=== PATIENT | female | born 1960 | race Caucasian/White ===

== ENCOUNTER → 2017-01-15 | Outpatient (CLI) | payer BC ==
[2015-07-20 03:08] VITALS: BP 140/66
[~2017-01-15] MED LIST: ASPI-630 PO; ATOR40TA59 PO; LEVO40CA PO; METO25TA9 PO; PRAS10TA9 PO
--- NOTE | 2017-01-15 08:31 | RAD ---
Indication: Right ankle pain. Time of exam 0807 hours. The alignment is normal. The ankle mortise is well maintained. The talar dome is smooth. No fracture or dislocation is seen. There is a large plantar calcaneal spur. Impression: No acute bony abnormality is detected.
== END | disposition home or self-care (01) ==
LOC: DXRADRC 07:59
PROVIDERS: ATTEND Physician Assistant Medical
DX: M25.571 Pain in right ankle and joints of right foot (principal)
CPT/HCPCS: 73610

== ENCOUNTER 2017-06-24 19:11 | Inpatient (IN) | payer BC ==
[~2017-06-24] VITALS: Ht 165.1 cm; Wt 111.6 kg
[~2017-06-24 19:11] MED LIST changes: +METO-239 PO; -METO25TA9 PO
[2017-06-24] MEDS ORDERED: ASPIRIN 81 MG TAB.CHEW ONE (19:16)
[2017-06-24] MEDS ORDERED: NITROGLYCERIN SUBLINGUAL 0.4 MG BOTTLE OF 25. SL ONE (19:17)
[2017-06-24] MEDS ORDERED: NITROGLYCERIN SUBLINGUAL 0.4 MG BOTTLE OF 25. SL PRN ×2 (19:45→21:45)
[2017-06-24] MEDS ORDERED: MORPHINE SULFATE 2 MG/ML DISP.SYRIN. ONE ×2 (19:53→20:34)
[2017-06-24] MEDS ORDERED: ONDANSETRON PF 4 MG/2 ML VIAL. ONE (19:54)
[2017-06-24] MEDS: MORPHINE SULFATE 2 MG/ML DISP.SYRIN. IV PRN ×2 (19:54→20:35)
[2017-06-24 20:00] LABS: BASO % 1 % (0-3); EOS # 0.1 x10^3/uL (0.0-0.7); EOS % 2 % (0-3); HEMOGLOBIN 14.6 g/dL (12.0-15.5); LYMPH # 1.7 x10^3/uL (1.0-4.8); LYMPH % 23 % (24-48); MEAN CORPUSCULAR HEMOGLOBIN 31 pg (25-35); MEAN CORPUSCULAR HGB CONC 34 g/dL (31-37); MEAN CORPUSCULAR VOLUME 91 fL (79-100); MONO # 0.6 x10^3/uL (0.0-1.1); MONO % 8 % (0-9); NEUT % 67 % (31-73); PLATELET COUNT 240 x10^3/uL (140-400); RED BLOOD COUNT 4.75 x10^6/uL (3.50-5.40); RED CELL DISTRIBUTION WIDTH 14.2 % (11.5-14.5); WHITE BLOOD COUNT 7.4 x10^3/uL (4.0-11.0)
[2017-06-24 20:19] LABS: ALBUMIN 3.8 g/dL (3.4-5.0); ALBUMIN/GLOBULIN RATIO 1.1 (1.0-1.7); CALCIUM 8.9 mg/dL (8.5-10.1); GFR 57.4; MAGNESIUM 2.2 mg/dL (1.8-2.4); POTASSIUM 4.5 mmol/L (3.5-5.1); TOTAL BILIRUBIN 0.3 mg/dL (0.2-1.0); TOTAL PROTEIN 7.3 g/dL (6.4-8.2)
--- NOTE | 2017-06-24 20:19 | EKG ---
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
--- NOTE | 2017-06-24 20:27 | PHYS DOC ---
General Chief Complaint: CHEST PAIN Stated Complaint: CHEST PAIN Time Seen by MD: 19:40 Source: patient Exam Limitations: no limitations Problems: History of Present Illness Initial Comments 1 patient is a 56-year-old female who comes to the emergency department complaining of chest pain. Patient states that this morning after [employer] she was feeling dizzy, at 3:15 PM while sitting on the sofa watching football she developed anterior chest pain described as a tightness with nausea and dizziness and mild shortness of breath , no diaphoresis or arm symptoms she did have some mild neck discomfort. She called personal lines advisor cardiology and they recommended she come for evaluation. On arrival her pain is described as a tightness 7 out of 10 it does improve to 5 out of 10 with nitroglycerin sublingually 1 however her systolic blood pressure did drop into the 90s so no further nitroglycerin has been given and some IV fluids have been started. Patient has history of coronary artery disease she has been stented in the past she follows with Dr. Molina. She cannot tell if today's symptoms are consistent with her prior cardiac symptoms. Timing/Duration: 4-6 hours Severity: moderate Modifying Factors: improves with other Associated Symptoms: chest pain, shortness of breath, other Allergies: Coded Allergies: Sulfa (Sulfonamide Antibiotics) (Verified Allergy, Unknown, 07/19/15) codeine (Verified Allergy, Unknown, 07/19/15) Past Medical History Medical History: other (CAD, cancer) Surgical History: other (stent, hysterectomy) Social History Smoker: non-smoker Alcohol: none Drugs: none Review of Systems Constitutional: denies chills, denies diaphoresis, denies fever, malaise Respiratory: denies cough, shortness of breath, denies wheezing Cardiovascular: see HPI, chest pain, denies palpitations, denies syncope Gastrointestinal: denies abdominal pain, denies diarrhea, nausea, denies vomiting Genitourinary: denies dysuria, denies frequency, denies hematuria Musculoskeletal: denies back pain, denies joint swelling, denies neck pain Psychiatric/Neurological: denies headache, denies numbness, denies paresthesia Hematologic/Lymphatic: denies blood clots, denies easy bleeding, denies easy bruising Physical Exam General Appearance: WD/WN, no apparent distress, obese Eyes: bilateral eye normal inspection, bilateral eye PERRL, bilateral eye EOMI Ear, Nose, Throat: hearing grossly normal, normal ENT inspection Neck: non-tender, full range of motion, supple Respiratory: chest non-tender, normal breath sounds, no respiratory distress Cardiovascular: normal peripheral pulses, regular rate, rhythm Gastrointestinal: normal bowel sounds, non tender, soft Back: no CVA tenderness, no vertebral tenderness Extremities: normal range of motion, non-tender, swelling (2+ pitting LE edema) , other 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 Interpreted by Dr. Limon. This study was compared to a study July 19, 2015 no new acute changes. Chest AP: No acute cardiopulmonary process interpreted by Dr. Limon. Labs unremarkable 2144: I discussed the patient with Dr. Kenney he is in agreement that the patient needs to be admitted to follow serial cardiac enzymes and be evaluated by cardiology tomorrow. He requests observation telemetry admission. Departure Disposition: ADMITTED INPATIENT Diagnosis: chest pain history of coronary artery disease Condition: STABLE Additional Instructions: Observation telemetry admission Dr. Kenney is accepting DOMINIC LIMON DO Jun 24, 2017 20:27
[2017-06-24] MEDS ORDERED: ASPIRIN 81 MG TAB.CHEW PO ONE (20:30)
[2017-06-24] MEDS ORDERED: ONDANSETRON PF 4 MG/2 ML VIAL. IV ONE (20:45)
[2017-06-24 21:13] LABS: BARBITURATES NEG (NEG); BENZODIAZEPINES NEG (NEG); CANNABINOIDS NEG (NEG); COCAINE NEG (NEG); METHADONE NEG (NEG); OPIATES POS (NEG); PHENCYCLIDINE NEG (NEG)
[2017-06-24 21:13] LABS: BACTERIA,URINE MOD /HPF (0-FEW); BILIRUBIN,URINE NEG (NEG); CLARITY,URINE HAZY; COLOR,URINE YELLOW; GLUCOSE,URINE NEG (NEG); NITRITE,URINE NEG (NEG); RBC,URINE 0 /HPF (0-2); SQUAMOUS EPITHELIAL CELL,UR OCC /LPF; UROBILINOGEN,URINE 0.2 mg/dL (0.2 mg/dL)
[2017-06-24 21:38] LABS: AMPHETAMINE/METHAMPHETAMINE NEG (NEG)
[2017-06-24] MEDS ORDERED: ONDANSETRON PF 4 MG/2 ML VIAL. IV PRN (21:45)
[2017-06-24] MEDS ORDERED: ACETAMINOPHEN 325 MG TABLET PO PRN (21:45)
[2017-06-24] MEDS ORDERED: IV NORMAL SALINE 1,000ML 1,000 ML IV ONE (22:00)
[2017-06-24 22:34] VITALS: BP 140/72
[2017-06-24] MEDS ORDERED: MULT1TAB52 PO (22:53)
[2017-06-24] MEDS ORDERED: MELO15TA23 PO (22:53)
[2017-06-24] MEDS ORDERED: Influenza vaccine per PROTOCOL. MC PRN (23:15)
[2017-06-25 03:17] LABS: BASO % 1 % (0-3); EOS # 0.2 x10^3/uL (0.0-0.7); EOS % 2 % (0-3); HEMATOCRIT 40.4 % (36.0-47.0); HEMOGLOBIN 13.4 g/dL (12.0-15.5); LYMPH # 1.8 x10^3/uL (1.0-4.8); LYMPH % 24 % (24-48); MEAN CORPUSCULAR HEMOGLOBIN 30 pg (25-35); MEAN CORPUSCULAR HGB CONC 33 g/dL (31-37); MEAN CORPUSCULAR VOLUME 91 fL (79-100); MONO # 0.5 x10^3/uL (0.0-1.1); MONO % 7 % (0-9); NEUT % 66 % (31-73); PLATELET COUNT 218 x10^3/uL (140-400); RED BLOOD COUNT 4.46 x10^6/uL (3.50-5.40); RED CELL DISTRIBUTION WIDTH 14.1 % (11.5-14.5); WHITE BLOOD COUNT 7.5 x10^3/uL (4.0-11.0)
[2017-06-25 03:47] LABS: CALCIUM 8.3 mg/dL (8.5-10.1); CREATININE 0.8 mg/dL (0.6-1.0); GFR 74.2; POTASSIUM 3.8 mmol/L (3.5-5.1)
[2017-06-25 05:28] VITALS: BP 91/70
--- NOTE | 2017-06-25 07:45 | RAD ---
Indication: Chest pain and stent placement. Technique: Upright portable chest radiograph was obtained. Comparison is from August 18, 2016. Findings: The lungs are clear. The cardiopulmonary silhouette is within normal limits. The bony structures are intact. Impression: No active pulmonary disease.
[2017-06-25] MEDS: MULTIVITAMIN with MINERAL TABLET. PO SCH (08:14)
[2017-06-25] MEDS: ASPIRIN 81 MG TAB.CHEW PO SCH (08:14)
[2017-06-25] MEDS: METOPROLOL SUCC 24HR ER 25 MG TAB.ER.24H. PO SCH (08:17)
[2017-06-25] MEDS: MELOXICAM 15 MG TABLET. PO SCH (08:17)
[2017-06-25 08:20] VITALS: BP 107/64
[2017-06-25] MEDS: LEVOMILNACIPRAN HYDROCHLORIDE 40 MG PO SCH (09:00)
[2017-06-25] MEDS ORDERED: FLU VACC QS2017-18 (36MOS+)/PF 0.5 ML SYRINGE. VAX IM ONE (09:00)
--- NOTE | 2017-06-25 09:04 | PDOC2 ---
CONSULT Date of Admission DATE: 06/25/17 TIME: 08:56 Reason for Consult: cp Problem List Problems Medical Problems: (1) Chest pain Status: Acute History of Present Illness Ms Bailey is a 56 year old female with history of coronary artery disease s/p PCI/ Stent to LAD in 2014, hypertension and hyperlipidemia. She presents with chest pain that started at rest yesterday after pentecostalism around 3:30pm. She reports she lay down but had no relief so called office and was instructed to come for evaluation. She reports improvement in her pain in the ED after nitro and morphine but no resolution. She reports continued mild discomfort this am. She does say yesterday her pain was minimally increased with walking around. She reports some pain off and on lately with exertion and stress. She describes this as pressure that she believes is related to gas. She denies any associated symptoms. She denies dyspnea, congestive symptoms, palpitations. She does report some lightheadedness yesterday at the onset of her discomfort. Past Medical History Cardiac cath 08-04-15 CORONARY ANGIOGRAPHY: LM: is a large short caliber vessel with a normal angiographic appearance. LAD: is a large caliber vessel with a proximal 95% stenosis. The mid vessel has a 40% stenosis. The LAD gives rise to two small caliber diagonal vessels with normal angiographic appearance. LCx: is a large caliber co-dominant vessel with normal angiographic appearance. OM1, OM2 and LP1 are moderate caliber vessels with normal angiographic appearance. RCA: is a moderate caliber co-dominant vessel with normal angiographic appearance. Conclusion 1. Mildly elevated left ventricular filling pressures. 2. One vessel CAD involving the proximal LAD. 3. Successful PCI with implantation of a Resolute 3.5/22 RUY, post-dilated proximally to a 4.5 mm size with aid of IVUS. Echo 08/04/15 <Conclusion> Normal LV systolic function with mild LAD territory hypokinesis. No significant valvular abnormalities. Cardiovascular: HTN, hyperipidemia Renal/: Other (renal cancer) Past Surgical History: Cholecystectomy, Hysterectomy, Other (partial nephrectomy) Family History CAD Social History non smoker, no significant ETOH, no illicit drugs Current Medications Current Medications Aspirin (Children'S Aspirin) 81 mg STK-MED ONCE .ROUTE ; Start 06/24/17 at 19: 16; Stop 06/24/17 at 19:17; Status DC Nitroglycerin (Nitrostat) 0.4 mg STK-MED ONCE SL ; Start 06/24/17 at 19:17; Stop 06/24/17 at 19:18; Status DC Aspirin (Children'S Aspirin) 324 mg 1X ONCE PO Last administered on 19:59; Start 06/24/17 at 20:30; Stop 06/24/17 at 20:31; Status DC Nitroglycerin (Nitrostat) 0.4 mg PRN Q5MIN PRN SL CP RATING > 1/10 Last administered on 06/24/17 19:43; Start 06/24/17 at 19:45; Stop 06/24/17 at 21 :52; Status DC Morphine Sulfate (Morphine 2mg Syringe) 2 mg STK-MED ONCE .ROUTE ; Start at 19:53; Stop 06/24/17 at 19:54; Status DC Ondansetron HCl (Zofran) 4 mg STK-MED ONCE .ROUTE ; Start 06/24/17 at 19:54; Stop 06/24/17 at 19:55; Status DC Morphine Sulfate (Morphine 2mg Syringe) 2 mg STK-MED ONCE .ROUTE ; Start at 20:34; Stop 06/24/17 at 20:35; Status DC Morphine Sulfate (Morphine 2mg Syringe) 2 mg PRN Q15MIN PRN IV CHEST PAIN Last administered on 06/24/17 20:35; Start 06/24/17 at 20:45 Ondansetron HCl (Zofran) 4 mg 1X ONCE IV Last administered on 06/24/17 19:55 ; Start 06/24/17 at 20:45; Stop 06/24/17 at 20:46; Status DC Ondansetron HCl (Zofran) 4 mg PRN Q4HRS PRN IV NAUSEA/VOMITING; Start at 21:45; Stop 06/25/17 at 21:44 Acetaminophen (Tylenol) 650 mg PRN Q4HRS PRN PO FEVER; Start 06/24/17 at 21:45 ; Stop 06/25/17 at 21:44 Nitroglycerin (Nitrostat) 0.4 mg PRN Q5MIN PRN SL CHEST PAIN; Start 06/24/17 at 21:45; Stop 06/25/17 at 21:44 Sodium Chloride 1,000 ml @ 1,000 mls/hr 1X ONCE IV Last administered on 06/24 19:54; Start 06/24/17 at 22:00; Stop 06/24/17 at 22:59; Status DC Info (FLU VACCINE per PROTOCOL) 1 ea PRN 1X PRN MC PER PROTOCOL; Start at 23:15; Status UNV Aspirin (Children'S Aspirin) 81 mg DAILY PO Last administered on 06/25/17 08: 14; Start 06/25/17 at 09:00 Meloxicam (Mobic) 15 mg DAILY PO Last administered on 06/25/17 08:17; Start 06/25/17 at 09:00 Metoprolol Succinate (Toprol Xl) 25 mg DAILY PO Last administered on 08:17; Start 06/25/17 at 09:00 Atorvastatin Calcium (Lipitor) 40 mg QHS PO ; Start 06/25/17 at 21:00 Non-Formulary Medication 40 mg DAILY PO ; Start 06/25/17 at 09:00; Status UNV Multivitamins/ Calcium (Thera-M Plus) 1 tab DAILY PO Last administered on 06/25 08:14; Start 06/25/17 at 09:00 Influenza Virus Vaccine Quadrival (Fluarix Quad [id number] Syringe) 0.5 ml ONCE ONCE VAX IM ; Start 06/25/17 at 09:00; Stop 06/25/17 at 09:01 Active Scripts Active Reported Multivitamins (Multivitamin) 1 Each Tablet 1 Tab PO DAILY Meloxicam 15 Mg Tablet 1 Tab PO DAILY Fetzima (Levomilnacipran Hydrochloride) 40 Mg Cap.sa.24h 40 Mg PO DAILY Metoprolol Succinate ( Xl ) (Metoprolol Succinate) 25 Mg Tab.er.24h 1 Tab PO DAILY Atorvastatin Calcium 40 Mg Tablet 1 Tab PO HS Aspirin 81 Mg Tab.chew 81 Mg PO DAILY Allergies: Coded Allergies: Sulfa (Sulfonamide Antibiotics) (Verified Allergy, Unknown, 07/19/15) codeine (Verified Allergy, Unknown, 07/19/15) Review of System as per HPI General: Alert, Oriented X3, Cooperative, No acute distress HEENT: Atraumatic, EOMI, Mucous membr. moist/pink Heart: Regular rate, Normal S1, Normal S2, Other (no gallops, clicks or rubs) Abdomen: Normal bowel sounds, Soft, No tenderness Extremities: No cyanosis, No edema, Normal pulses Neuro: Normal speech, Strength at 5/5 X4 ext Psych/Mental Status: Mental status NL, Mood NL VITALS Vital Signs Date Time Temp Pulse Resp B/P (MAP) Pulse Ox O2 Delivery O2 Flow Rate FiO2 06/25/17 08:20 70 107/64 (78) 06/25/17 05:28 97.1 16 100 Room Air 06/24/17 21:31 2.0 Labs Laboratory Tests Test 06/24/17 19:40 06/24/17 20:52 06/25/17 03:00 White Blood Count 7.4 x10^3/uL (4.0-11.0) 7.5 x10^3/uL (4.0-11.0) Red Blood Count 4.75 x10^6/uL (3.50-5.40) 4.46 x10^6/uL (3.50-5.40) Hemoglobin 14.6 g/dL (12.0-15.5) 13.4 g/dL (12.0-15.5) Hematocrit 43.0 % (36.0-47.0) 40.4 % (36.0-47.0) Mean Corpuscular Volume 91 fL (79-100) 91 fL (79-100) Mean Corpuscular Hemoglobin 31 pg (25-35) 30 pg (25-35) Mean Corpuscular Hemoglobin Concent 34 g/dL (31-37) 33 g/dL (31-37) Red Cell Distribution Width 14.2 % (11.5-14.5) 14.1 % (11.5-14.5) Platelet Count 240 x10^3/uL (140-400) 218 x10^3/uL (140-400) Neutrophils (%) (Auto) 67 % (31-73) 66 % (31-73) Lymphocytes (%) (Auto) 23 % (24-48) 24 % (24-48) Monocytes (%) (Auto) 8 % (0-9) 7 % (0-9) Eosinophils (%) (Auto) 2 % (0-3) 2 % (0-3) Basophils (%) (Auto) 1 % (0-3) 1 % (0-3) Neutrophils # (Auto) 5.0 x10^3uL (1.8-7.7) 5.0 x10^3uL (1.8-7.7) Lymphocytes # (Auto) 1.7 x10^3/uL (1.0-4.8) 1.8 x10^3/uL (1.0-4.8) Monocytes # (Auto) 0.6 x10^3/uL (0.0-1.1) 0.5 x10^3/uL (0.0-1.1) Eosinophils # (Auto) 0.1 x10^3/uL (0.0-0.7) 0.2 x10^3/uL (0.0-0.7) Basophils # (Auto) 0.0 x10^3/uL (0.0-0.2) 0.0 x10^3/uL (0.0-0.2) Prothrombin Time 10.1 SEC (9.4-11.4) Prothromb Time International Ratio 1.0 (0.9-1.1) Activated Partial Thromboplast Time 25 SEC (23-33) D-Dimer (Bhavya) 0.19 mg/L (0.00-0.50) Sodium Level 143 mmol/L (136-145) 140 mmol/L (136-145) Potassium Level 4.5 mmol/L (3.5-5.1) 3.8 mmol/L (3.5-5.1) Chloride Level 106 mmol/L (98-107) 107 mmol/L (98-107) Carbon Dioxide Level 33 mmol/L (21-32) 27 mmol/L (21-32) Anion Gap 4 (6-14) 6 (6-14) Blood Urea Nitrogen 16 mg/dL (7-20) 18 mg/dL (7-20) Creatinine 1.0 mg/dL (0.6-1.0) 0.8 mg/dL (0.6-1.0) Estimated GFR (Cockcroft-Gault) 57.4 74.2 BUN/Creatinine Ratio 16 (6-20) Glucose Level 93 mg/dL (70-99) 121 mg/dL (70-99) Calcium Level 8.9 mg/dL (8.5-10.1) 8.3 mg/dL (8.5-10.1) Magnesium Level 2.2 mg/dL (1.8-2.4) Total Bilirubin 0.3 mg/dL (0.2-1.0) Aspartate Amino Transf (AST/SGOT) 25 U/L (15-37) Alanine Aminotransferase (ALT/SGPT) 49 U/L (14-59) Alkaline Phosphatase 98 U/L (46-116) Creatine Kinase 80 U/L (26-192) Troponin I Quantitative < 0.017 ng/mL (0-0.055) < 0.017 ng/mL (0-0.055) TG-Fpq-T-Type Natriuretic Peptide 28 pg/mL (0-124) Total Protein 7.3 g/dL (6.4-8.2) Albumin 3.8 g/dL (3.4-5.0) Albumin/Globulin Ratio 1.1 (1.0-1.7) Lipase 196 U/L (73-393) Urine Opiates Screen Pos (NEG) Urine Methadone Screen Neg (NEG) Urine Barbiturates Neg (NEG) Urine Phencyclidine Screen Neg (NEG) Urine Amphetamine/Methamphetamine Neg (NEG) Urine Benzodiazepines Screen Neg (NEG) Urine Cocaine Screen Neg (NEG) Urine Cannabinoids Screen Neg (NEG) Urine Ethyl Alcohol Neg (NEG) Urine Collection Type Unknown Urine Color Yellow Urine Clarity Hazy Urine pH 6.0 Urine Specific [place] 1.025 Urine Protein Neg (NEG-TRACE) Urine Glucose (UA) Neg mg/dL (NEG) Urine Ketones (Stick) Neg mg/dL (NEG) Urine Blood Neg (NEG) Urine Nitrite Neg (NEG) Urine Bilirubin Neg (NEG) Urine Urobilinogen Dipstick 0.2 mg/dL (0.2 mg/dL) Urine Leukocyte Esterase Neg (NEG) Urine RBC 0 /HPF (0-2) Urine WBC 1-4 /HPF (0-4) Urine Squamous Epithelial Cells Occ /LPF Urine Bacteria Mod /HPF (0-FEW) Images EKG - sinus rhythm with non specific t abn CXR - Impression: No active pulmonary disease. Assessment/Plan 1. chest pain - negative CE x 2 sets, no acute abn on EKG. 2. CAD with prior PCI/Stent to LAD 3. hypertension 4. hyperlipidemia Current chest pain unlikely cardiac as enzymes remain negative, however with history of exertional chest pain off and on would recommend repeat echo and MPI. She has consumed caffeine and breakfast this am so will order testing for first thing in the morning tomorrow. Continue medical therapy with aspirin, antianginals and check lipid status. Problems: LISBETH ARMSTRONG APRN Jun 25, 2017 09:04
--- NOTE | 2017-06-25 13:51 | HP ---
ADMIT DATE: 06/25/2017 REASON FOR ADMISSION: Chest pain. HISTORY OF PRESENT ILLNESS: This is a 56-year-old female who has a previous history of coronary artery disease with a stent placement to her LAD in 2014. She stated yesterday around 3:30, she was not doing anything strenuous and developed what she described as central chest pain. The pain has been ongoing with some minimal relief from nitroglycerin and morphine. She felt a little flushed and recently had some drainage from the right ear; otherwise, she has been in her usual state of health. ALLERGIES: SULFA and CODEINE. MEDICATIONS: Reviewed and corrected and are available on the MAR. PAST MEDICAL HISTORY: Depression, controlled very well with Fetzima, coronary artery disease with stent placement in 2014, joint pain in her thumbs and a recent UTI 3 weeks ago. IMMUNIZATIONS: She has not yet received a flu shot. 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 She also does not drink. REVIEW OF SYSTEMS: Positive for one bout of diarrhea, some right ear drainage a couple of days ago; joint pains, which is ongoing. She has had a history of kidney cancer on the right. PAST SURGICAL HISTORY: Right partial nephrectomy, hysterectomy, cystocele repair, cholecystectomy and left wrist surgery. OBJECTIVE: VITAL SIGNS: Height 65 inches, weight 246.31 pounds, blood pressure 107/64, pulse is 70, temperature 97.1, and saturation was 100% on room air. GENERAL: A pleasant 56-year-old, in no acute distress. HEENT: Face is flushed. Throat was clear. Her TMs are intact bilaterally, could not appreciate any drainage from the right ear. There was no erythema. Nose was patent. NECK: Supple, without adenopathy. LUNGS: Clear in all ray. CARDIOVASCULAR: Regular rhythm and rate without murmur. ABDOMEN: Soft, nontender. EXTREMITIES: Without edema. NEUROLOGIC: She is alert and oriented. LABORATORY DATA: CBC is unremarkable. Troponins are negative x 3. Lipids are normal. BMP normal. Drug screen was positive for opiates, but she did receive some morphine. Urine was probably clear, there were 1-4 white cells, but negative nitrites, negative leukocyte esterase. ASSESSMENT: 1. Chest pain with cardiac history. Troponins negative. EKG is also negative. 2. Recent urinary tract infection. 3. Depression, stable on admission. 4. History of kidney cancer, present on admission, stable. PLAN: Because of her risk factors, Cardiology is going to go ahead and stress her do the stress test and monitor her chest pain. EWELINA MAC DO DR: ALOK/robert JOB#: [id number] / [id number]
[2017-06-25 14:34] VITALS: BP 126/71
[2017-06-25] MEDS ORDERED: MAG HYDROX/AL HYDROX/SIMETH 30 ML ORAL.SUSP PO PRN (16:45)
[2017-06-25 19:21] VITALS: BP 146/80
[2017-06-25] MEDS ORDERED: ATORVASTATIN CALCIUM 20 MG TABLET PO SCH (21:00)
[2017-06-25 22:41] VITALS: BP 109/65
[2017-06-26 05:19] VITALS: BP 119/84
[2017-06-26 06:26] LABS: BASO % 1 % (0-3); EOS # 0.2 x10^3/uL (0.0-0.7); EOS % 2 % (0-3); HEMATOCRIT 40.9 % (36.0-47.0); HEMOGLOBIN 13.8 g/dL (12.0-15.5); LYMPH # 1.8 x10^3/uL (1.0-4.8); LYMPH % 28 % (24-48); MEAN CORPUSCULAR HEMOGLOBIN 31 pg (25-35); MEAN CORPUSCULAR HGB CONC 34 g/dL (31-37); MEAN CORPUSCULAR VOLUME 90 fL (79-100); MONO # 0.4 x10^3/uL (0.0-1.1); MONO % 7 % (0-9); NEUT # 3.9 x10^3uL (1.8-7.7); NEUT % 63 % (31-73); PLATELET COUNT 209 x10^3/uL (140-400); RED BLOOD COUNT 4.54 x10^6/uL (3.50-5.40); RED CELL DISTRIBUTION WIDTH 14.2 % (11.5-14.5); WHITE BLOOD COUNT 6.3 x10^3/uL (4.0-11.0)
[2017-06-26 06:47] LABS: ALBUMIN 3.3 g/dL (3.4-5.0); CALCIUM 8.3 mg/dL (8.5-10.1); CREATININE 0.9 mg/dL (0.6-1.0); GFR 64.8; POTASSIUM 4.2 mmol/L (3.5-5.1); TOTAL BILIRUBIN 0.3 mg/dL (0.2-1.0); TOTAL PROTEIN 6.5 g/dL (6.4-8.2)
[2017-06-26] MEDS: LEVOMILNACIPRAN HYDROCHLORIDE 40 MG PO SCH (09:00)
[2017-06-26] MEDS ORDERED: REGADENOSON 0.4 MG/5 ML DISP.SYRIN. IV ONE (09:00)
--- NOTE | 2017-06-26 09:34 | PDOC ---
PROGRESS NOTES Diagnosis Problem Problems Medical Problems: (1) Chest pain Status: Acute Assessment Problems Medical Problems: (1) Chest pain Status: Acute 1. chest pain - [place] ruled out. MPI this am. 2. CAD with prior PCI/Stent to LAD - continue medical therapy. 3. hypertension - controlled on current therapy. 4. hyperlipidemia - continue statin Problems: Subjective no chest pain, no dyspnea, lightheadedness or palpitations, "ready for stress test" Objective Vital Signs Date Time Temp Pulse Resp B/P (MAP) Pulse Ox O2 Delivery O2 Flow Rate FiO2 06/26/17 08:30 Room Air 06/26/17 05:19 97.7 68 20 119/84 (96) 99 2.0 Intake and Output 06/27/17 07:00 Intake Total 0 ml Balance 0 ml Intake Oral 0 ml Abdomen: Normal bowel sounds, Soft, No tenderness Heart: Regular rate, Normal S1, Normal S2 Extremities: No cyanosis, No edema, Normal pulses General: Alert, Oriented X3, Cooperative, No acute distress HEENT: Atraumatic, EOMI Lungs: Clear to auscultation, Normal air movement Neuro: Normal speech, Strength at 5/5 X4 ext Psych/Mental Status: Mental status NL, Mood NL Review of Relevant I have reviewed the following items tesfaye (where applicable) has been applied. Labs Laboratory Tests Test 06/24/17 19:40 06/24/17 20:52 06/24/17 23:10 06/25/17 03:00 White Blood Count 7.4 x10^3/uL (4.0-11.0) 7.5 x10^3/uL (4.0-11.0) Red Blood Count 4.75 x10^6/uL (3.50-5.40) 4.46 x10^6/uL (3.50-5.40) Hemoglobin 14.6 g/dL (12.0-15.5) 13.4 g/dL (12.0-15.5) Hematocrit 43.0 % (36.0-47.0) 40.4 % (36.0-47.0) Mean Corpuscular Volume 91 fL (79-100) 91 fL (79-100) Mean Corpuscular Hemoglobin 31 pg (25-35) 30 pg (25-35) Mean Corpuscular Hemoglobin Concent 34 g/dL (31-37) 33 g/dL (31-37) Red Cell Distribution Width 14.2 % (11.5-14.5) 14.1 % (11.5-14.5) Platelet Count 240 x10^3/uL (140-400) 218 x10^3/uL (140-400) Neutrophils (%) (Auto) 67 % (31-73) 66 % (31-73) Lymphocytes (%) (Auto) 23 % (24-48) 24 % (24-48) Monocytes (%) (Auto) 8 % (0-9) 7 % (0-9) Eosinophils (%) (Auto) 2 % (0-3) 2 % (0-3) Basophils (%) (Auto) 1 % (0-3) 1 % (0-3) Neutrophils # (Auto) 5.0 x10^3uL (1.8-7.7) 5.0 x10^3uL (1.8-7.7) Lymphocytes # (Auto) 1.7 x10^3/uL (1.0-4.8) 1.8 x10^3/uL (1.0-4.8) Monocytes # (Auto) 0.6 x10^3/uL (0.0-1.1) 0.5 x10^3/uL (0.0-1.1) Eosinophils # (Auto) 0.1 x10^3/uL (0.0-0.7) 0.2 x10^3/uL (0.0-0.7) Basophils # (Auto) 0.0 x10^3/uL (0.0-0.2) 0.0 x10^3/uL (0.0-0.2) Prothrombin Time 10.1 SEC (9.4-11.4) Prothromb Time International Ratio 1.0 (0.9-1.1) Activated Partial Thromboplast Time 25 SEC (23-33) D-Dimer (Bhavya) 0.19 mg/L (0.00-0.50) Sodium Level 143 mmol/L (136-145) 140 mmol/L (136-145) Potassium Level 4.5 mmol/L (3.5-5.1) 3.8 mmol/L (3.5-5.1) Chloride Level 106 mmol/L (98-107) 107 mmol/L (98-107) Carbon Dioxide Level 33 mmol/L (21-32) 27 mmol/L (21-32) Anion Gap 4 (6-14) 6 (6-14) Blood Urea Nitrogen 16 mg/dL (7-20) 18 mg/dL (7-20) Creatinine 1.0 mg/dL (0.6-1.0) 0.8 mg/dL (0.6-1.0) Estimated GFR (Cockcroft-Gault) 57.4 74.2 BUN/Creatinine Ratio 16 (6-20) Glucose Level 93 mg/dL (70-99) 121 mg/dL (70-99) Calcium Level 8.9 mg/dL (8.5-10.1) 8.3 mg/dL (8.5-10.1) Magnesium Level 2.2 mg/dL (1.8-2.4) Total Bilirubin 0.3 mg/dL (0.2-1.0) Aspartate Amino Transf (AST/SGOT) 25 U/L (15-37) Alanine Aminotransferase (ALT/SGPT) 49 U/L (14-59) Alkaline Phosphatase 98 U/L (46-116) Creatine Kinase 80 U/L (26-192) Troponin I Quantitative < 0.017 ng/mL (0-0.055) < 0.017 ng/mL (0-0.055) VR-Mko-X-Type Natriuretic Peptide 28 pg/mL (0-124) Total Protein 7.3 g/dL (6.4-8.2) Albumin 3.8 g/dL (3.4-5.0) Albumin/Globulin Ratio 1.1 (1.0-1.7) Lipase 196 U/L (73-393) Urine Opiates Screen Pos (NEG) Urine Methadone Screen Neg (NEG) Urine Barbiturates Neg (NEG) Urine Phencyclidine Screen Neg (NEG) Urine Amphetamine/Methamphetamine Neg (NEG) Urine Benzodiazepines Screen Neg (NEG) Urine Cocaine Screen Neg (NEG) Urine Cannabinoids Screen Neg (NEG) Urine Ethyl Alcohol Neg (NEG) Urine Collection Type Unknown Urine Color Yellow Urine Clarity Hazy Urine pH 6.0 Urine Specific [place] 1.025 Urine Protein Neg (NEG-TRACE) Urine Glucose (UA) Neg mg/dL (NEG) Urine Ketones (Stick) Neg mg/dL (NEG) Urine Blood Neg (NEG) Urine Nitrite Neg (NEG) Urine Bilirubin Neg (NEG) Urine Urobilinogen Dipstick 0.2 mg/dL (0.2 mg/dL) Urine Leukocyte Esterase Neg (NEG) Urine RBC 0 /HPF (0-2) Urine WBC 1-4 /HPF (0-4) Urine Squamous Epithelial Cells Occ /LPF Urine Bacteria Mod /HPF (0-FEW) Nasal Screen MRSA (PCR) Negative (Negative) Test 06/25/17 08:58 06/26/17 06:14 Troponin I Quantitative < 0.017 ng/mL (0-0.055) Triglycerides Level 93 mg/dL (0-150) Cholesterol Level 116 mg/dL (0-200) LDL Cholesterol, Calculated 53 mg/dL (0-100) VLDL Cholesterol, Calculated 18 mg/dL (0-40) Non-HDL Cholesterol Calculated 71 mg/dL (0-129) HDL Cholesterol 45 mg/dL (40-60) Cholesterol/HDL Ratio 2.0 White Blood Count 6.3 x10^3/uL (4.0-11.0) Red Blood Count 4.54 x10^6/uL (3.50-5.40) Hemoglobin 13.8 g/dL (12.0-15.5) Hematocrit 40.9 % (36.0-47.0) Mean Corpuscular Volume 90 fL (79-100) Mean Corpuscular Hemoglobin 31 pg (25-35) Mean Corpuscular Hemoglobin Concent 34 g/dL (31-37) Red Cell Distribution Width 14.2 % (11.5-14.5) Platelet Count 209 x10^3/uL (140-400) Neutrophils (%) (Auto) 63 % (31-73) Lymphocytes (%) (Auto) 28 % (24-48) Monocytes (%) (Auto) 7 % (0-9) Eosinophils (%) (Auto) 2 % (0-3) Basophils (%) (Auto) 1 % (0-3) Neutrophils # (Auto) 3.9 x10^3uL (1.8-7.7) Lymphocytes # (Auto) 1.8 x10^3/uL (1.0-4.8) Monocytes # (Auto) 0.4 x10^3/uL (0.0-1.1) Eosinophils # (Auto) 0.2 x10^3/uL (0.0-0.7) Basophils # (Auto) 0.0 x10^3/uL (0.0-0.2) Sodium Level 142 mmol/L (136-145) Potassium Level 4.2 mmol/L (3.5-5.1) Chloride Level 107 mmol/L (98-107) Carbon Dioxide Level 30 mmol/L (21-32) Anion Gap 5 (6-14) Blood Urea Nitrogen 13 mg/dL (7-20) Creatinine 0.9 mg/dL (0.6-1.0) Estimated GFR (Cockcroft-Gault) 64.8 BUN/Creatinine Ratio 14 (6-20) Glucose Level 108 mg/dL (70-99) Calcium Level 8.3 mg/dL (8.5-10.1) Total Bilirubin 0.3 mg/dL (0.2-1.0) Aspartate Amino Transf (AST/SGOT) 18 U/L (15-37) Alanine Aminotransferase (ALT/SGPT) 41 U/L (14-59) Alkaline Phosphatase 84 U/L (46-116) Total Protein 6.5 g/dL (6.4-8.2) Albumin 3.3 g/dL (3.4-5.0) Albumin/Globulin Ratio 1.0 (1.0-1.7) Microbiology 06/24/17 Urine Culture - Preliminary, Resulted 06/24/17 Urine Culture Result 1 (JAMIL) - Preliminary, Resulted Medications Current Medications Aspirin (Children'S Aspirin) 81 mg STK-MED ONCE .ROUTE ; Start 06/24/17 at 19: 16; Stop 06/24/17 at 19:17; Status DC Nitroglycerin (Nitrostat) 0.4 mg STK-MED ONCE SL ; Start 06/24/17 at 19:17; Stop 06/24/17 at 19:18; Status DC Aspirin (Children'S Aspirin) 324 mg 1X ONCE PO Last administered on 19:59; Start 06/24/17 at 20:30; Stop 06/24/17 at 20:31; Status DC Nitroglycerin (Nitrostat) 0.4 mg PRN Q5MIN PRN SL CP RATING > 1/10 Last administered on 06/24/17 19:43; Start 06/24/17 at 19:45; Stop 06/24/17 at 21 :52; Status DC Morphine Sulfate (Morphine 2mg Syringe) 2 mg STK-MED ONCE .ROUTE ; Start at 19:53; Stop 06/24/17 at 19:54; Status DC Ondansetron HCl (Zofran) 4 mg STK-MED ONCE .ROUTE ; Start 06/24/17 at 19:54; Stop 06/24/17 at 19:55; Status DC Morphine Sulfate (Morphine 2mg Syringe) 2 mg STK-MED ONCE .ROUTE ; Start at 20:34; Stop 06/24/17 at 20:35; Status DC Morphine Sulfate (Morphine 2mg Syringe) 2 mg PRN Q15MIN PRN IV CHEST PAIN Last administered on 06/24/17 20:35; Start 06/24/17 at 20:45 Ondansetron HCl (Zofran) 4 mg 1X ONCE IV Last administered on 06/24/17 19:55 ; Start 06/24/17 at 20:45; Stop 06/24/17 at 20:46; Status DC Ondansetron HCl (Zofran) 4 mg PRN Q4HRS PRN IV NAUSEA/VOMITING; Start at 21:45; Stop 06/25/17 at 21:44; Status DC Acetaminophen (Tylenol) 650 mg PRN Q4HRS PRN PO FEVER Last administered on 20:20; Start 06/24/17 at 21:45; Stop 06/25/17 at 21:44; Status DC Nitroglycerin (Nitrostat) 0.4 mg PRN Q5MIN PRN SL CHEST PAIN; Start 06/24/17 at 21:45; Stop 06/25/17 at 21:44; Status DC Sodium Chloride 1,000 ml @ 1,000 mls/hr 1X ONCE IV Last administered on 06/24 19:54; Start 06/24/17 at 22:00; Stop 06/24/17 at 22:59; Status DC Info (FLU VACCINE per PROTOCOL) 1 ea PRN 1X PRN MC PER PROTOCOL; Start at 23:15; Status UNV Aspirin (Children'S Aspirin) 81 mg DAILY PO Last administered on 06/25/17 08: 14; Start 06/25/17 at 09:00 Meloxicam (Mobic) 15 mg DAILY PO Last administered on 06/25/17 08:17; Start 06/25/17 at 09:00 Metoprolol Succinate (Toprol Xl) 25 mg DAILY PO Last administered on 08:17; Start 06/25/17 at 09:00 Atorvastatin Calcium (Lipitor) 40 mg QHS PO Last administered on 06/25/17 21: 08; Start 06/25/17 at 21:00 Non-Formulary Medication 40 mg DAILY PO ; Start 06/25/17 at 09:00; Status UNV Multivitamins/ Calcium (Thera-M Plus) 1 tab DAILY PO Last administered on 06/25 08:14; Start 06/25/17 at 09:00 Influenza Virus Vaccine Quadrival (Fluarix Quad Syringe) 0.5 ml ONCE ONCE VAX IM ; Start 06/25/17 at 09:00; Stop 06/25/17 at 09:01; Status DC Influenza Virus Vaccine Quadrival (Fluarix Quad [id number] Syringe) 0.5 ml ONCE ONCE VAX IM ; Start 06/26/17 at 12:00; Stop 06/26/17 at 12:01 Al Hydroxide/Mg Hydroxide (Mylanta Plus Xs) 30 ml PRN Q2HR PRN PO DYSPEPSIA; Start 06/25/17 at 16:45 Regadenoson (Lexiscan) 0.4 mg 1X ONCE IV ; Start 06/26/17 at 09:00; Stop at 09:01; Status DC Active Scripts Active Reported Multivitamins (Multivitamin) 1 Each Tablet 1 Tab PO DAILY Meloxicam 15 Mg Tablet 1 Tab PO DAILY Fetzima (Levomilnacipran Hydrochloride) 40 Mg Cap.sa.24h 40 Mg PO DAILY Metoprolol Succinate ( Xl ) (Metoprolol Succinate) 25 Mg Tab.er.24h 1 Tab PO DAILY Atorvastatin Calcium 40 Mg Tablet 1 Tab PO HS Aspirin 81 Mg Tab.chew 81 Mg PO DAILY Vitals/I & O Vital Sign - Last 24 Hours 06/25/17 06/25/17 06/25/17 06/25/17 14:34 19:21 20:00 22:41 Temp 97.7 98.0 Pulse 77 72 70 Resp 21 18 18 B/P (MAP) 126/71 (89) 146/80 (102) 109/65 (80) Pulse Ox 97 100 100 O2 Delivery Room Air Room Air Nasal Cannula O2 Flow Rate 2.0 06/26/17 06/26/17 05:19 08:30 Temp 97.7 Pulse 68 Resp 20 B/P (MAP) 119/84 (96) Pulse Ox 99 O2 Delivery Room Air O2 Flow Rate 2.0 Intake and Output 06/26/17 06/26/17 06/27/17 15:00 23:00 07:00 Intake Total 0 ml Balance 0 ml LISBETH ARMSTRONG APRN Jun 26, 2017 09:34
[2017-06-26] MEDS: MELOXICAM 15 MG TABLET. PO SCH (11:11)
[2017-06-26] MEDS: MULTIVITAMIN with MINERAL TABLET. PO SCH (11:11)
[2017-06-26] MEDS: ASPIRIN 81 MG TAB.CHEW PO SCH (11:12)
[2017-06-26] MEDS: METOPROLOL SUCC 24HR ER 25 MG TAB.ER.24H. PO SCH (11:12)
[2017-06-26 11:21] VITALS: BP 108/69
[2017-06-26] MEDS ORDERED: FLU VACC QS2017-18 (36MOS+)/PF 0.5 ML SYRINGE. VAX IM ONE (12:00)
--- NOTE | 2017-06-26 12:24 | CARD ---
APPROVED REPORT EXAM: Two-dimensional and M-mode echocardiogram with Doppler and color Doppler. Other Information Quality : FairHR: 75bpm INDICATION Chest Pain 2D DIMENSIONS Left Atrium(2D)4.2 (1.6-4.0cm)IVSd1.0 (0.7-1.1cm) Aortic Root(2D)2.6 (2.0-3.7cm)LVDd4.4 (3.9-5.9cm) LVOT Diameter2.1 (1.8-2.4cm)PWd1.0 (0.7-1.1cm) LA Rsnsao02 (18-58mL)LVDs2.9 (2.5-4.0cm) FS (%) 34.6 %SV57.3 ml LVEF(%)63.9 (>50%) Aortic Valve AoV Peak Jairo.101.6cm/sAoV VTI21.2cm AO Peak GR.4.1mmHgLVOT Peak Jairo.115.2cm/s LVOT VTI 25.26cmAO Mean GR.2mmHg SUMMER (VMAX)3.48xr9AGA (VTI)4.12cm2 Mitral Valve MV E Hzqluwrc911.2cm/sMV E Peak Gr.4mmHg MV DECEL [id number] A Gafomeee01.8cm/s MV E Mean Gr.2mmHgE/A Ratio1.4 Pulmonary Valve PV Peak Wejczoiv05.6cm/sPV Peak Grad.3mmHg Tricuspid Valve TR P. Hcvjzrhv581hi/sRAP CPEFTEFU9nhEu TR Peak Gr.40psSxNDSE39vrLt Pulmonary Vein S1 Ebhutenb54.2cm/sD2 Xrvpadbp86.4cm/s LEFT VENTRICLE The left ventricle is normal size. There is normal left ventricular wall thickness. The left ventricu lar systolic function is normal. The ejection fraction is estimated at 60%. There is normal LV segmen israel wall motion. The left ventricular diastolic function and filling is normal for age. No left ventr icle thrombus noted on this study. There is no ventricular septal defect visualized. There is no left ventricular aneurysm. There is no mass noted in the left ventricle. RIGHT VENTRICLE The right ventricle is normal size. There is normal right ventricular wall thickness. The right ventr icular systolic function is normal. ATRIA The left atrium is mildly dilated. The right atrium size is normal. The interatrial septum is intact with no evidence for an atrial septal defect or patent foramen ovale as noted on 2-D or Doppler imagi ng. AORTIC VALVE The aortic valve is normal in structure and function. Doppler and Color Flow revealed no significant aortic regurgitation. There is no significant aortic valvular stenosis. There is no aortic valvular v egetation. MITRAL VALVE The mitral valve is normal in structure and function. There is no evidence of mitral valve prolapse. There is no mitral valve stenosis. Doppler and Color-flow revealed mild mitral regurgitation. TRICUSPID VALVE The tricuspid valve is normal in structure and function. Doppler and Color Flow revealed mild tricusp id regurgitation. There is no tricuspid valve prolapse or vegetation. There is no tricuspid valve casey nosis. PULMONIC VALVE The pulmonary valve is normal in structure and function. Doppler and Color Flow revealed trace pulmon ic valvular regurgitation. There is no pulmonic valvular stenosis. GREAT VESSELS The aortic root is normal in size. The ascending aorta is normal in size. PERICARDIAL EFFUSION There is no pleural effusion. There is no evidence of significant pericardial effusion. Critical Notification Critical Value: No <Conclusion> The left ventricular systolic function is normal. The ejection fraction is estimated at 60%. There is normal LV segmental wall motion. Mild mitral regurgitation. Mild tricuspid regurgitation. There is no evidence of significant pericardial effusion.
--- NOTE | 2017-06-26 13:52 | RAD ---
APPROVED REPORT Test Type: Pharmacological Stress Nurse/Tech: RIO Santacruz Test Indications: Hx of CAD - stent - recent Chest Pain and palpitations Cardiac History: see EHR Medications: see EHR Medical History: see EHR Resting ECG: Sinus Rythym Resting Heart Rate: 68 bpm Resting Blood Pressure: 133/83mmHg Pretest Chest Pain: None Nurse/Tech Notes dyspnea during stress Consent: The procedure was explained to the patient in lay terms. Informed consent was witnessed. Florentin eout was entered into [employer]. History and Stress Test performed by RIO Santacruz Pharm. Details Pharmacologic stress testing was performed using 0.4mg per 5ml of regadenoson given intravenously ove r 7-10 seconds. Stress Symptoms dyspnea during stress POST EXERCISE Reason for Termination: Infusion complete Max HR: 93 bpm Max Blood Pressure: 135/76mmHg Blood Pressure response to exercise: Normal blood pressure response during stress. Heart Rate response to exercise: normal response Chest Pain: No. INTERPRETATION Stress EKG Conclusion: Baseline EKG showed sinus rhythm. No ischemic changes at peak stress. No arr hythmias. Imaging Protocol IMAGE PROTOCOL: Stress Tc-99m/rest Tc-99m 2 days Rest: Stress: Viability: Radiopharm.Tc99m Sestamibi Dose32.3mCi Duration 12min. Img Date 06/26/2017 Inj-Img [id number]. Stress Admin Site: IV - Right AntecubitalAdministrator: RIO Santacruz STRESS DATA End Diast. Vol.85.0mlAv. Heart Rate72.0bpm LVEDV index BSA1.0mlCardiac Output0.1L/min End Syst. Vol.14.0mlCO Index BSA5.1L/min LVESV index BSA0.0mlMyocardial Vlnh933.0g Eject. Rzwltnmv92.0% Stress Rates Pk. Fill Rate3.90EDV/secLVtime Pk. Fill 210.44msec Pk. Empty Rate4.09ESV/secLVtime Pk. Xwxfn089.94msec /3 Pk. Fill1.43EDV/sec Stress Scores Regional WT0.00Summed WT8.00 Regional WM0.00Summed WM0.00 LV Perfusion Stress scintigraphic images did not show any significant perfusion defects. Wall Motion Normal left ventricular systolic function with ejection fraction calculated at 84%. LV Perf. Quant 17 Seg. SSS1.00 Stress Defect Extent (% LAD)0.00Rest Defect Extent (% LAD)Rev. Defect Extent (% LAD)0.00 Stress Defect Extent (% LCX) 8.80Rest Defect Extent (% LCX)Rev. Defect Extent (% LCX)1.30 Stress Defect Extent (% RCA)0.00Rest Defect Extent (% RCA)Rev. Defect Extent (% RCA)0.00 Stress Defect Extent (% JERI)1.50Rest Defect Extent (% JERI)Rev. Defect Extent (% JERI)0.20 Conclusion 1. Regadenoson cardioisotope stress test did not show any evidence of ischemia or infarct. 2. Normal left ventricular systolic function with ejection fraction calculated at 84%. 3. Low risk for cardiac events.
[2017-06-26 15:58] VITALS: BP 130/78
--- NOTE | 2017-06-27 14:04 | PDOC3 ---
Discharge Summary Visit Information Date of Admission: Jun 25, 2017 Date of Discharge: Jun 26, 2017 Final Diagnosis Problems Medical Problems: (1) Chest pain Status: Acute 1. chest pain - [place] ruled out. MPI this am.-negative 2. CAD with prior PCI/Stent to LAD - continue medical therapy. 3. hypertension - controlled on current therapy. 4. hyperlipidemia - continue statin 2. Recent urinary tract infection. 3. Depression, stable on admission. 4. History of kidney cancer, present on admission, stable. Problems: Brief Hospital Course Allergies Allergies Coded Allergies Type Severity Reaction Last Updated Verified Sulfa (Sulfonamide Antibiotics) Allergy Intermediate 06/26/17 Yes codeine Allergy Intermediate 06/26/17 Yes Vital Signs Vital Signs Date Time Temp Pulse Resp B/P (MAP) Pulse Ox O2 Delivery O2 Flow Rate FiO2 06/26/17 15:58 98.1 69 20 130/78 (95) 97 Room Air 06/26/17 05:19 2.0 Lab Results Laboratory Tests Test 06/26/17 06:14 White Blood Count 6.3 x10^3/uL (4.0-11.0) Red Blood Count 4.54 x10^6/uL (3.50-5.40) Hemoglobin 13.8 g/dL (12.0-15.5) Hematocrit 40.9 % (36.0-47.0) Mean Corpuscular Volume 90 fL (79-100) Mean Corpuscular Hemoglobin 31 pg (25-35) Mean Corpuscular Hemoglobin Concent 34 g/dL (31-37) Red Cell Distribution Width 14.2 % (11.5-14.5) Platelet Count 209 x10^3/uL (140-400) Neutrophils (%) (Auto) 63 % (31-73) Lymphocytes (%) (Auto) 28 % (24-48) Monocytes (%) (Auto) 7 % (0-9) Eosinophils (%) (Auto) 2 % (0-3) Basophils (%) (Auto) 1 % (0-3) Neutrophils # (Auto) 3.9 x10^3uL (1.8-7.7) Lymphocytes # (Auto) 1.8 x10^3/uL (1.0-4.8) Monocytes # (Auto) 0.4 x10^3/uL (0.0-1.1) Eosinophils # (Auto) 0.2 x10^3/uL (0.0-0.7) Basophils # (Auto) 0.0 x10^3/uL (0.0-0.2) Sodium Level 142 mmol/L (136-145) Potassium Level 4.2 mmol/L (3.5-5.1) Chloride Level 107 mmol/L (98-107) Carbon Dioxide Level 30 mmol/L (21-32) Anion Gap 5 (6-14) Blood Urea Nitrogen 13 mg/dL (7-20) Creatinine 0.9 mg/dL (0.6-1.0) Estimated GFR (Cockcroft-Gault) 64.8 BUN/Creatinine Ratio 14 (6-20) Glucose Level 108 mg/dL (70-99) Calcium Level 8.3 mg/dL (8.5-10.1) Total Bilirubin 0.3 mg/dL (0.2-1.0) Aspartate Amino Transf (AST/SGOT) 18 U/L (15-37) Alanine Aminotransferase (ALT/SGPT) 41 U/L (14-59) Alkaline Phosphatase 84 U/L (46-116) Total Protein 6.5 g/dL (6.4-8.2) Albumin 3.3 g/dL (3.4-5.0) Albumin/Globulin Ratio 1.0 (1.0-1.7) Brief Hospital Course Ms. Bailey is a 56 old [sex] who presented with [ ] HISTORY OF PRESENT ILLNESS: This is a 56-year-old female who has a previous history of coronary artery disease with a stent placement to her LAD in 2014. She stated yesterday around 3:30, she was not doing anything strenuous and developed what she described as central chest pain. The pain has been ongoing with some minimal relief from nitroglycerin and morphine. She felt a little flushed and recently had some drainage from the right ear; otherwise, she has been in her usual state of health. [place] ruled out. Lexiscan negative. Source of chest pain appears to be non cardiac-unable to determine Discharge Information Condition at Discharge: Improved Disposition/Orders: D/C to Home Dischare Medications Current Medications Aspirin (Children'S Aspirin) 81 mg STK-MED ONCE .ROUTE ; Start 06/24/17 at 19: 16; Stop 06/24/17 at 19:17; Status DC Nitroglycerin (Nitrostat) 0.4 mg STK-MED ONCE SL ; Start 06/24/17 at 19:17; Stop 06/24/17 at 19:18; Status DC Aspirin (Children'S Aspirin) 324 mg 1X ONCE PO Last administered on 19:59; Start 06/24/17 at 20:30; Stop 06/24/17 at 20:31; Status DC Nitroglycerin (Nitrostat) 0.4 mg PRN Q5MIN PRN SL CP RATING > 1/10 Last administered on 06/24/17 19:43; Start 06/24/17 at 19:45; Stop 06/24/17 at 21 :52; Status DC Morphine Sulfate (Morphine 2mg Syringe) 2 mg STK-MED ONCE .ROUTE ; Start at 19:53; Stop 06/24/17 at 19:54; Status DC Ondansetron HCl (Zofran) 4 mg STK-MED ONCE .ROUTE ; Start 06/24/17 at 19:54; Stop 06/24/17 at 19:55; Status DC Morphine Sulfate (Morphine 2mg Syringe) 2 mg STK-MED ONCE .ROUTE ; Start at 20:34; Stop 06/24/17 at 20:35; Status DC Morphine Sulfate (Morphine 2mg Syringe) 2 mg PRN Q15MIN PRN IV CHEST PAIN Last administered on 06/24/17 20:35; Start 06/24/17 at 20:45; Stop 06/26/17 at 16 :40; Status DC Ondansetron HCl (Zofran) 4 mg 1X ONCE IV Last administered on 06/24/17 19:55 ; Start 06/24/17 at 20:45; Stop 06/24/17 at 20:46; Status DC Ondansetron HCl (Zofran) 4 mg PRN Q4HRS PRN IV NAUSEA/VOMITING; Start at 21:45; Stop 06/25/17 at 21:44; Status DC Acetaminophen (Tylenol) 650 mg PRN Q4HRS PRN PO FEVER Last administered on 20:20; Start 06/24/17 at 21:45; Stop 06/25/17 at 21:44; Status DC Nitroglycerin (Nitrostat) 0.4 mg PRN Q5MIN PRN SL CHEST PAIN; Start 06/24/17 at 21:45; Stop 06/25/17 at 21:44; Status DC Sodium Chloride 1,000 ml @ 1,000 mls/hr 1X ONCE IV Last administered on 06/24 19:54; Start 06/24/17 at 22:00; Stop 06/24/17 at 22:59; Status DC Info (FLU VACCINE per PROTOCOL) 1 ea PRN 1X PRN MC PER PROTOCOL; Start at 23:15; Status UNV Aspirin (Children'S Aspirin) 81 mg DAILY PO Last administered on 06/26/17 11: 12; Start 06/25/17 at 09:00; Stop 06/26/17 at 16:40; Status DC Meloxicam (Mobic) 15 mg DAILY PO Last administered on 06/26/17 11:11; Start 06/25/17 at 09:00; Stop 06/26/17 at 16:40; Status DC Metoprolol Succinate (Toprol Xl) 25 mg DAILY PO Last administered on 11:12; Start 06/25/17 at 09:00; Stop 06/26/17 at 16:40; Status DC Atorvastatin Calcium (Lipitor) 40 mg QHS PO Last administered on 06/25/17 21: 08; Start 06/25/17 at 21:00; Stop 06/26/17 at 16:40; Status DC Non-Formulary Medication 40 mg DAILY PO ; Start 06/25/17 at 09:00; Stop at 16:40; Status DC Multivitamins/ Calcium (Thera-M Plus) 1 tab DAILY PO Last administered on 06/26 11:11; Start 06/25/17 at 09:00; Stop 06/26/17 at 16:40; Status DC Influenza Virus Vaccine Quadrival (Fluarix Quad Syringe) 0.5 ml ONCE ONCE VAX IM Last administered on 06/26/17 11:15; Start 06/25/17 at 09:00; Stop 06/25/17 at 09:01; Status DC Influenza Virus Vaccine Quadrival (Fluarix Quad Syringe) 0.5 ml ONCE ONCE VAX IM ; Start 06/26/17 at 12:00; Stop 06/26/17 at 12:01; Status DC Al Hydroxide/Mg Hydroxide (Mylanta Plus Xs) 30 ml PRN Q2HR PRN PO DYSPEPSIA; Start 06/25/17 at 16:45; Stop 06/26/17 at 16:40; Status DC Regadenoson (Lexiscan) 0.4 mg 1X ONCE IV Last administered on 06/26/17t 09:00 ; Start 06/26/17 at 09:00; Stop 06/26/17 at 09:01; Status DC Active Scripts Active Reported Multivitamins (Multivitamin) 1 Each Tablet 1 Tab PO DAILY LAST DOSE GIVEN: DATE: TODAY TIME: AM NEXT DOSE DUE: DATE: TOMORROW TIME: AM Meloxicam 15 Mg Tablet 1 Tab PO DAILY LAST DOSE GIVEN: DATE: TODAY TIME: AM NEXT DOSE DUE: DATE: TOMORROW TIME: AM Fetzima (Levomilnacipran Hydrochloride) 40 Mg Cap.sa.24h 40 Mg PO DAILY LAST DOSE GIVEN: DATE: TODAY TIME: AM NEXT DOSE DUE: DATE: TOMORROW TIME: AM Metoprolol Succinate ( Xl ) (Metoprolol Succinate) 25 Mg Tab.er.24h 1 Tab PO DAILY LAST DOSE GIVEN: DATE: TODAY TIME: AM NEXT DOSE DUE: DATE: TOMORROW TIME: AM Atorvastatin Calcium 40 Mg Tablet 1 Tab PO HS LAST DOSE GIVEN: DATE: YESTERDAY TIME: PM NEXT DOSE DUE: DATE: TODAY TIME: PM Aspirin 81 Mg Tab.chew 81 Mg PO DAILY LAST DOSE GIVEN: DATE: TODAY TIME: AM NEXT DOSE DUE: DATE: TOMORROW TIME: AM Patient Instructions Patient Instuctions See [facility] EWELINA Greenfield DO Jun 27, 2017 14:03
== END 2017-06-26 16:35 | disposition home or self-care (01) | DRG 313 ==
LOC: ER 19:11 → ICU 21:51 → OBSVTOIN 06-25 10:53 → 1 SOUTH 06-25 18:46
PROVIDERS: ADMIT Internal Medicine; ATTEND Internal Medicine
DX: R07.89 Other chest pain (principal); I25.10 Atherosclerotic heart disease of native coronary artery without angina pectoris; E78.5 Hyperlipidemia, unspecified; F17.200 Nicotine dependence, unspecified, uncomplicated; F32.9 Major depressive disorder, single episode, unspecified; I10 Essential (primary) hypertension; Z82.49 Family history of ischemic heart disease and other diseases of the circulatory system; Z85.528 Personal history of other malignant neoplasm of kidney; Z95.5 Presence of coronary angioplasty implant and graft; Z88.5 Allergy status to narcotic agent; Z88.2 Allergy status to sulfonamides; Z90.710 Acquired absence of both cervix and uterus; Z90.5 Acquired absence of kidney; Z90.49 Acquired absence of other specified parts of digestive tract; Z87.440 Personal history of urinary (tract) infections
CPT/HCPCS: 36415; 71010; 78452; 80048; 80053; 80061; 80307; 81001; 82550; 83690; 83735; 83880; 84484; 85025; 85379; 85610; 85730; 87086; 87641; 90686; 93005; 93017; 93306; 96361; 96374; 96375; 96376; A9500; G0378; G0379; J2270; J2405; J2785; 99285-25; G0479; J7030

== ENCOUNTER → 2017-09-18 | Outpatient (CLI) | payer BC ==
[~2017-09-18] MED LIST changes: +MELO15TA23 PO; +MULT1TAB52 PO
--- NOTE | 2017-09-18 16:22 | RAD ---
PROCEDURE: CHEST PA LATERAL CLINICAL INDICATION: COUGH,FEVER COMPARISON: Previous study from 06/24/2017 FINDINGS: No pneumothorax identified. Cardiac and mediastinal contours unremarkable. No pulmonary consolidation or acute airspace disease. No acute osseous abnormalities identified. Calcified granuloma in the right lung apex. IMPRESSION: No pulmonary consolidation or acute airspace disease.
== END | disposition home or self-care (01) ==
LOC: PMG 15:08
PROVIDERS: ATTEND Nurse Practitioner Family
DX: R05 Cough (principal); J98.4 Other disorders of lung; Z87.891 Personal history of nicotine dependence
CPT/HCPCS: 71046

== ENCOUNTER → 2018-11-04 | Outpatient (CLI) | payer BC ==
[~2018-11-04] MED LIST changes: +IOHEXOL 300 MG/ML 75 ML VIAL. IV ONE
[2018-11-04 10:50] LABS: CREATININE 0.9 mg/dL (0.6-1.0); GFR 64.5
--- NOTE | 2018-11-04 14:35 | RAD ---
Examination: CT abdomen with IV contrast HISTORY: History of renal cancer, right flank pain COMPARISON: 08/23/2016 TECHNIQUE: Axial CT images of the abdomen were performed with IV contrast. Coronal and sagittal reformats are performed Exposure: One or more of the following individualized dose reduction techniques were utilized for this examination: 1. Automated exposure control 2. Adjustment of the mA and/or kV according to patient size 3. Use of iterative reconstruction technique FINDINGS: Minimal bibasilar lung atelectasis. No evidence of free air identified in the abdomen. There is diffuse decreased attenuation noted in the liver likely hepatic steatosis. The visualized spleen, adrenals grossly appears unremarkable. Cholecystectomy clips identified. The stomach is mildly distended. Small hiatal hernia is identified. Visualized pancreas grossly appears unremarkable. The small bowel is nondilated. The appendix is normal. Partially visualized colon demonstrates feces and gas within. The bilateral kidneys enhance symmetrically. No obvious mass visualized. Surgical clip identified posterior to the right kidney similar to prior exam The caliber of the aorta grossly appears unremarkable. Mild degenerative changes lumbar spine. IMPRESSION: 1. No obvious enhancing renal mass identified. 2. Hepatic steatosis. Electronically signed by: Giovanni Harris MD (11/04/2018 2:33 PM) [id number]
== END | disposition home or self-care (01) ==
LOC: CT 09:43
PROVIDERS: ATTEND Physician Assistant Medical
DX: K76.0 Fatty (change of) liver, not elsewhere classified (principal); M47.896 Other spondylosis, lumbar region; K44.9 Diaphragmatic hernia without obstruction or gangrene; K31.89 Other diseases of stomach and duodenum; J98.11 Atelectasis; Z85.528 Personal history of other malignant neoplasm of kidney; Z90.49 Acquired absence of other specified parts of digestive tract
CPT/HCPCS: 36415; 74160; 82565; Q9967

== ENCOUNTER → 2021-04-25 | Outpatient (CLI) | payer BC ==
[~2021-04-25] MED LIST changes: -IOHEXOL 300 MG/ML 75 ML VIAL. IV ONE; +MULT-445 PO; -MULT1TAB52 PO
--- NOTE | 2021-04-25 11:17 | RAD ---
EXAM: AP, lateral and sunrise views of the right knee. DATE: 04/25/2021 8:50 AM INDICATION: Reason: KNEE INJURY, PAIN / Spl. Instructions: / History: COMPARISON: No Prior FINDINGS: No acute fracture or dislocation. No joint effusion. Joint spaces are preserved without significant degenerative/proliferative change. Heterogeneous sclerosis within the distal left femoral shaft may r epresent low-grade cartilaginous lesion such as enchondroma or bone infarct. IMPRESSION: 1. No acute fracture or dislocation. 2. Heterogeneous sclerosis within the distal left femoral shaft may represent low-grade cartilaginou s lesion such as enchondroma or bone infarct. Electronically signed by: Dakota De Guzman MD (04/25/2021 11:14 AM) [id number]
== END ==
LOC: RAD 08:42
PROVIDERS: ATTEND Physician Assistant Medical
DX: M25.562 Pain in left knee (principal)
CPT/HCPCS: 73562

== ENCOUNTER → 2021-05-03 | Outpatient (CLI) | payer BC ==
--- NOTE | 2021-05-03 13:37 | RAD ---
EXAM: Right foot, 3 views. HISTORY: Blunt trauma. COMPARISON: None. FINDINGS: 3 views of the right foot are obtained. There is no acute fracture, dislocation or subluxat ion. There is mild degenerative spurring involving the first metatarsal phalangeal joint. There is a small plantar spur. There is slight enthesopathy at the Achilles tendon insertion. IMPRESSION: 1. No acute osseous finding. 2. Mild first metatarsophalangeal joint osteoarthritis. 3. Small plantar spur. Electronically signed by: Erin Laughlin MD (05/03/2021 1:35 PM) [id number]
== END ==
LOC: RAD 13:17
PROVIDERS: ATTEND Physician Assistant Medical
DX: M19.071 Primary osteoarthritis, right ankle and foot (principal); M77.31 Calcaneal spur, right foot; M76.61 Achilles tendinitis, right leg; M79.671 Pain in right foot
CPT/HCPCS: 73630

== ENCOUNTER 2021-08-14 22:20 | Emergency (ER) | payer BC ==
[~2021-08-14] VITALS: Ht 172.7 cm; Wt 102.1 kg
--- NOTE | 2021-08-14 22:34 | PHYS DOC ---
Past History Past Medical History: Cancer, [place] Past Surgical History: Hysterectomy Alcohol Use: Occasionally Drug Use: None Adult General HPI HPI Patient is a 60-year-old female who presents Covid positive since Sunday with a chief complaint of cough, fatigue and body aches. States the rest of her family had Covid over the last couple weeks as well. States he is eating and drinking normally. States he is making urine and stool normally for her. Denies any other recent traumas, illnesses, fevers, chest pain, shortness of breath, abdominal pain, nausea, vomiting, diarrhea. States she is eating and drinking normally. Review of Systems Review of Systems Constitutional: Denies fever or chills [] Eyes: Denies change in visual acuity, redness, or eye pain [] HENT: Denies nasal congestion or sore throat [] Respiratory: Denies cough or shortness of breath [] Cardiovascular: No additional information not addressed in HPI [] GI: Denies abdominal pain, nausea, vomiting, bloody stools or diarrhea [] : Denies dysuria or hematuria [] Musculoskeletal: Denies back pain or joint pain [] Integument: Denies rash or skin lesions [] Neurologic: Denies headache, focal weakness or sensory changes [] Endocrine: Denies polyuria or polydipsia [] All other systems were reviewed and found to be within normal limits, except as documented in this note. Allergies Allergies Allergies Coded Allergies Type Severity Reaction Last Updated Verified Sulfa (Sulfonamide Antibiotics) Allergy Intermediate 06/26/17 Yes codeine Allergy Intermediate 06/26/17 Yes Physical Exam Physical Exam Constitutional: Well developed, well nourished, no acute distress, non-toxic appearance. [] HENT: Normocephalic, atraumatic, bilateral external ears normal, oropharynx moist, no oral exudates, nose normal. [] Eyes: PERRLA, EOMI, conjunctiva normal, no discharge. [] Neck: Normal range of motion, no tenderness, supple, no stridor. [] Cardiovascular:Heart rate regular rhythm, no murmur [] Lungs & Thorax: Bilateral breath sounds clear to auscultation [] Abdomen: Bowel sounds normal, soft, no tenderness, no masses, no pulsatile masses. [] Skin: Warm, dry, no erythema, no rash. [] Back: No tenderness, no CVA tenderness. [] Extremities: No tenderness, no cyanosis, no clubbing, ROM intact, no edema. [] Neurologic: Alert and oriented X 3, normal motor function, normal sensory function, no focal deficits noted. [] Psychologic: Affect normal, judgement normal, mood normal. [] EKG EKG [] Radiology/Procedures Radiology/Procedures [] Heart Score C/O Chest Pain: No Risk Factors: Risk Factors: DM, Current or recent (<one month) smoker, HTN, HLP, family history of CAD, obesity. Risk Scores: Risk Factors: DM, Current or recent (<one month) smoker, HTN, HLP, family history of CAD, obesity. Course & Med Decision Making Course & Med Decision Making Patient is a 60-year-old female, Covid positive who presents with cough, fatigue and body aches Vital signs notable for tachycardia. Physical exam noted above. Chest x-ray suggestive of pneumonia most likely Covid since Covid positive. Started on antibiotics and steroids. Given medicine here in the ED for sy mptoms. Discussed symptom management at home. Advised to follow-up first thing in the morning with primary care physician. Gave strict return precautions to the ED. Patient grateful, verbalized understanding and agree with plan of discharge Dragon Disclaimer Dragon Disclaimer This electronic medical record was generated, in whole or in part, using a voice recognition dictation system. Departure Departure: Impression: Primary Impression: Pneumonia Additional Impression: Viral syndrome Disposition: 01 HOME / SELF CARE / HOMELESS Condition: GOOD Referrals: BERNA ARSHAD (PCP) Patient Instructions: Pneumonia, Adult, Viral Syndrome Additional Instructions: Thank you for coming into the emergency department tonight and allowing us to take care of you. Please read the attached information carefully to go back over some of the things we discussed. Please continue a regimen of Tylenol, ibuprofen and [id number] cough medicine. Is very important you follow-up in the morning with your primary care physician update on ED visit. Please come back with new or concerning symptoms as we discussed. You have COVID-19. It is an infection caused by a new type of coronavirus. COVID-19 will cause cold-like or mild flu symptoms in most. It can cause more severe symptoms like problems breathing in some. There is no treatment for COVID-19. The body will clear the infection over time. Self-care will help to ease discomfort. Steps to Take: Self-Care Rest as needed. Healthy habits may help you feel better. Steps include: Choose healthy foods including fruits and vegetables. Drink water throughout the day. Get plenty of sleep each night. If you smoke, try to quit. It may ease breathing. Avoid alcohol. Keep Others Healthy The virus can spread to others. Droplets are released every time you sneeze or cough. The droplets can get into the mouth, nose, or eyes of people near you and lead to infection. To lower the chances of spreading COVID-19 to others: Stay at home until your doctor has said it is safe to leave. If you tested p ositive this will mean staying isolated until both of the following are true: At least 7 days have passed since the start of illness. You are free of fever for at least 72 hours without the use of medicine. During this time: - Avoid public areas, events, or transportation. Do not return to work or school until your doctor has said it is safe to do so. - Call ahead if you need to go to a medical center. Let them know you may have COVID-19. It will help them guide you where to go. They may also ask you to wear a facemask when you come to the office. - If you call for emergency medical services, let them know you may have COVID- 19. While at home: - Try to avoid close contact with others. Stay about 6 feet away. - If possible, spend most of your time in a separate room from others. - Use a face mask if you will be in close contact with others such as sharing a room or vehicle. - Have someone wipe down common surfaces in the home. Use household community health coordinator every day on areas like doorknobs, counters, or sinks. - Cough or sneeze into a tissue. Throw the tissue away right after use. If a tissue is not available, cough or sneeze into your elbow. - Wash your hands often. Wash them after sneezing or coughing. Use soap and water and wash for at least 20 seconds. Alcohol based hand roll cleaner can be used if soap and water is not available. - Do not prepare food for others. Avoid sharing personal items like forks, spoons, or toothbrushes. - Avoid close contact with pets while you are sick. There is no evidence of the virus passing to pets. This is a safety step until more is known about this virus. Isolation can be frustrating. Social interaction can help. Keep in touch with friends and family through phone and tech options. You can still interact with others in your home, just keep a safe distance of about 6 feet. Follow-up: Your doctors office will check in with you to see if there are any changes in your health. You may be asked to keep track of symptoms to share with them. They will also let you know when you are clear to be in public again. Problems to Look Out For: Contact your doctor if your recovery is not going as you expect. Get emergency care if you have problems such as: - Trouble breathing - Nonstop chest pain or pressure - Changes in awareness, confusion, or problems waking - Lips or face have bluish color - Worsening of symptoms If you think you have an emergency, call for emergency medical services right away. [facility] Levofloxacin (LEVOFLOXACIN) 500 Mg Tablet 1 TAB PO DAILY for PNA for 6 Days, #6 TAB Prov: PRASANTH NICHOLS MD 08/14/21 Problem Qualifiers PRASANTH NICHOLS MD Aug 14, 2021 22:34
[2021-08-14] MEDS ORDERED: LEVO500T9 PO (22:49)
[2021-08-14] MEDS ORDERED: DEXAMETHASONE 4 MG TABLET PO ONE (23:00)
[2021-08-14] MEDS ORDERED: IBUPROFEN 600 MG TABLET. PO ONE (23:00)
[2021-08-14] MEDS ORDERED: diphenhydrAMINE HCL 25 MG CAPSULE PO ONE (23:00)
[2021-08-14] MEDS ORDERED: levoFLOXacin 500 MG TABLET PO ONE (23:00)
[2021-08-14] MEDS ORDERED: ACETAMINOPHEN 500 MG TABLET PO ONE (23:00)
[2021-08-14] MEDS ORDERED: guaiFENesin/CODEINE 100mg/10mg 5 ML LIQUID PO ONE (23:00)
[2021-08-14 23:08] VITALS: BP 148/86
--- NOTE | 2021-08-15 08:12 | RAD ---
XR CHEST 1V INDICATION: cough, covid + / Spl. Instructions: / History: . COMPARISON STUDY: 09/18/2017. FINDINGS: Lungs: Normal lung volume. Patchy bilateral opacities. Pleura: No pleural effusion or pneumothorax. Heart and Mediastinum: The cardiomediastinal silhouette is normal. The great vessels of the thorax ar e normal. Bones and Soft Tissues: The bones and soft tissues are within normal limits. IMPRESSION: Patchy bilateral opacities, consistent with patient's history of infection. Electronically signed by: Ramos Morataya MD (08/15/2021 8:10 AM) [id number]
== END 2021-08-14 23:00 | disposition home or self-care (01) ==
LOC: ER 22:20
DX: J18.9 Pneumonia, unspecified organism (principal); B34.9 Viral infection, unspecified; I25.2 Old myocardial infarction; Z88.2 Allergy status to sulfonamides; Z88.5 Allergy status to narcotic agent
CPT/HCPCS: 71045; 99284; J8540; Q0163

== ENCOUNTER 2021-08-18 13:35 | Inpatient (IN) | payer BC ==
[~2021-08-18] VITALS: Ht 165.1 cm; Wt 99.8 kg
[~2021-08-18 13:35] MED LIST changes: +LEVO500T9 PO
[2021-08-18] MEDS ORDERED: PIPERACILLIN/TAZOBACTAM 4.5 GM in IV NORMAL SALINE 50ML 50 ML IV ONE (14:00)
[2021-08-18] MEDS ORDERED: 0.9 % SODIUM CHLORIDE 10 ML DISP.SYRIN. IV PRN (14:00)
[2021-08-18] MEDS ORDERED: IV NORMAL SALINE 1,000ML 1,920 ML IV SCH (14:00)
[2021-08-18] MEDS ORDERED: IOHEXOL 350 MG/ML 100 ML VIAL. IV ONE (14:00)
[2021-08-18] MEDS: VANCOMYCIN PER PHARMACY MC ONE (14:00)
--- NOTE | 2021-08-18 14:09 | EKG ---
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
[2021-08-18 14:19] LABS: BASO % 0 % (0-3); EOS % 0 % (0-3); HEMATOCRIT 45.7 % (36.0-47.0); HEMOGLOBIN 15.6 g/dL (12.0-15.5); LYMPH # 0.9 x10^3/uL (1.0-4.8); LYMPH % 16 % (24-48); MEAN CORPUSCULAR HEMOGLOBIN 31 pg (25-35); MEAN CORPUSCULAR HGB CONC 34 g/dL (31-37); MEAN CORPUSCULAR VOLUME 90 fL (79-100); MONO # 0.4 x10^3/uL (0.0-1.1); MONO % 8 % (0-9); NEUT # 4.3 x10^3uL (1.8-7.7); NEUT % 76 % (31-73); PLATELET COUNT 233 x10^3/uL (140-400); RED BLOOD COUNT 5.07 x10^6/uL (3.50-5.40); RED CELL DISTRIBUTION WIDTH 14.5 % (11.5-14.5); WHITE BLOOD COUNT 5.7 x10^3/uL (4.0-11.0)
[2021-08-18 14:22] LABS: ANION GAP 12 (6-14); BLOOD UREA NITROGEN 14 mg/dL (7-20); BUN/CREATININE RATIO 16 (6-20); CALCIUM 8.1 mg/dL (8.5-10.1); CARBON DIOXIDE 29 mmol/L (21-32); CHLORIDE 103 mmol/L (98-107); CREATININE 0.9 mg/dL (0.6-1.0); GFR 63.9; GLUCOSE 98 mg/dL (70-99); POTASSIUM 3.7 mmol/L (3.5-5.1); SODIUM 144 mmol/L (136-145)
[2021-08-18] MEDS ORDERED: VANCOMYCIN 2 GM in IV NORMAL SALINE 500ML 500 ML IV ONE (14:30)
[2021-08-18 14:39] LABS: ALBUMIN 3.2 g/dL (3.4-5.0); ALBUMIN/GLOBULIN RATIO 0.9 (1.0-1.7); ALK PHOS 126 U/L (46-116); ALT (SGPT) 65 U/L (14-59); AST (SGOT) 47 U/L (15-37); MAGNESIUM 2.4 mg/dL (1.8-2.4); TOTAL BILIRUBIN 0.5 mg/dL (0.2-1.0); TOTAL PROTEIN 6.7 g/dL (6.4-8.2)
[2021-08-18] MEDS ORDERED: IV NORMAL SALINE 50ML 50 ML ONE (14:39)
[2021-08-18] MEDS ORDERED: PIPERACILLIN/TAZOBACTAM 4.5 GM VIAL IV ONE (14:39)
--- NOTE | 2021-08-18 14:48 | RAD ---
EXAM: CT chest with contrast - pulmonary embolus protocol CLINICAL HISTORY: SOA COVID+ 9 DAYS AGO. COMPARISON: None. TECHNIQUE: CT of the chest following the administration of intravenous contrast during the pulmonary arterial phase. Axial, coronal and sagittal reformatted images were generated including MIP images. ---PQRS compliance statement - One or more of the following individualized dose reduction techniques were utilized for this study: 1. Automated exposure control 2. Adjustment of the mA and/or kV according to patient size 3. Use of iterative reconstruction technique--- FINDINGS: CHEST: Diagnostic quality: Suboptimal. Pulmonary emboli: No pulmonary emboli to the level of the segmental branches. More peripheral vessel s are not well assessed. Right heart strain: None Pulmonary arteries: Normal in caliber. Heart is not enlarged. Coronary calcifications are seen. No pericardial effusion. No pleural effusion . Diffuse bilateral patchy and groundglass airspace opacities are seen. No pleural effusion. No pneumot horax. Visualized Upper abdomen: Hepatic hypoattenuation may be seen with fatty liver. Cholecystectomy clip s are seen. Bones: No aggressive osseous lesion is seen. IMPRESSION: 1. No evidence for acute pulmonary embolus to the level of the segmental branches. More peripheral v essels are not well assessed. 2. Diffuse bilateral patchy and groundglass airspace opacities consistent with multifocal pneumonia, including viral pneumonia. Imaging follow-up to resolution is recommended. 3. Hepatic hypoattenuation may be seen with fatty liver. Electronically signed by: Dakota De Guzman MD (08/18/2021 2:46 PM) [facility]
--- NOTE | 2021-08-18 14:51 | RAD ---
XR CHEST 1V History: Reason: SOA / Spl. Instructions: / History:: Positive. Comparison: August 14, 2021 Findings: Increased moderate diffuse pulmonary ill-defined opacities. No pleural effusion. No pneumothorax. Unc hanged heart size. Impression: 1. Increased moderate diffuse pulmonary opacities. Electronically signed by: Piter Mccollum DO (08/18/2021 2:48 PM) [id number]
--- NOTE | 2021-08-18 15:19 | PHYS DOC ---
Past History Past Medical History: [place], [place] (JIMMIE BLOOD DUMP GRADER) Past Surgical History: Other (JIMMIE BLOOD DUMP GRADER) Alcohol Use: None Drug Use: None (JIMMIE BLOOD APRN) Adult General Chief Complaint Chief Complaint: SHORTNESS OF BREATH HPI HPI Patient is a 60-year-old female patient presented to the ED today to be evaluated for cough and shortness of breath that has been going on since August 09, 2021 after being diagnosed with COVID-19. Patient states she was at a family event for Thanksgiving prior to her diagnosis and one family member had Covid symptoms but did not tell anyone. Patient states she did not receive a Covid vaccine. (JIMMIE BLOOD DUMP GRADER) Review of Systems Review of Systems Constitutional: Denies fever or chills [] Eyes: Denies change in visual acuity, redness, or eye pain [] HENT: Denies nasal congestion or sore throat [] Respiratory: Reports cough and shortness of breath [] Cardiovascular: No additional information not addressed in HPI [] GI: Denies abdominal pain, nausea, vomiting, bloody stools or diarrhea [] : Denies dysuria or hematuria [] Musculoskeletal: Denies back pain or joint pain [] Integument: Denies rash or skin lesions [] Neurologic: Denies headache, focal weakness or sensory changes [] All other systems were reviewed and found to be within normal limits, except as documented in this note. (JIMMIE BLOOD DUMP GRADER) Current Medications Current Medications Current Medications Medications (Trade) Dose Ordered Sig/Areli Start Time Stop Time Status Last Admin Dose Admin Fentanyl Citrate (Fentanyl 2ml Vial) 50 mcg PRN Q15MIN PRN 08/18/21 14:00 08/19/21 13:59 08/18/21 14:43 50 MCG Iohexol (Omnipaque 350 Mg/ml) 100 ml 1X ONCE 08/18/21 14:00 08/18/21 14:01 DC 08/18/21 14:13 100 ML Piperacillin Sod/ Tazobactam Sod (Zosyn) 4.5 gm STK-MED ONCE 08/18/21 14:39 08/18/21 14:40 DC Piperacillin Sod/ Tazobactam Sod 4.5 gm/Sodium Chloride 50 ml @ 100 mls/hr 1X ONCE 08/18/21 14:00 08/18/21 14:29 DC 08/18/21 14:42 100 MLS/HR Sodium Chloride 50 ml @ As Directed STK-MED ONCE 08/18/21 14:39 08/18/21 14:39 DC Sodium Chloride (Normal Saline Flush) 10 ml QSHIFT PRN 08/18/21 14:00 Vancomycin HCl (Vanco Per Pharmacy) 1 each 1X ONCE 08/18/21 14:00 08/18/21 14:01 DC Vancomycin HCl 2 gm/Sodium Chloride 500 ml @ 250 mls/hr 1X ONCE 08/18/21 14:30 08/18/21 16:29 (JIMMIE BLOOD DUMP GRADER) Allergies Allergies Allergies Coded Allergies Type Severity Reaction Last Updated Verified Sulfa (Sulfonamide Antibiotics) Allergy Intermediate 06/26/17 Yes codeine Allergy Intermediate 06/26/17 Yes (JIMMIE BLOOD DUMP GRADER) Physical Exam Physical Exam Constitutional: Well developed, well nourished, no acute distress, non-toxic appearance. [] HENT: Normocephalic, atraumatic, bilateral external ears normal, oropharynx moist, no oral exudates, nose normal. [] Eyes: PERRLA, EOMI, conjunctiva normal, no discharge. [] Neck: Normal range of motion, no tenderness, supple, no stridor. [] Cardiovascular:Heart rate regular rhythm, no murmur [] Lungs & Thorax: Bilateral breath sounds clear to auscultation [] Abdomen: Bowel sounds normal, soft, no tenderness, no masses, no pulsatile masses. [] Skin: Warm, dry, no erythema, no rash. [] Back: No tenderness, no CVA tenderness. [] Extremities: No tenderness, no cyanosis, no clubbing, ROM intact, no edema. [] Neurologic: Alert and oriented X 3, normal motor function, normal sensory function, no focal deficits noted. [] Psychologic: Affect normal, judgement normal, mood normal. [] (JIMMIE BLOOD DUMP GRADER) Current Patient Data Vital Signs Vital Signs Date Time Temp Pulse Resp B/P (MAP) Pulse Ox O2 Delivery O2 Flow Rate FiO2 08/18/21 15:13 90 16 121/70 (87) 91 Nasal Cannula 2.0 08/18/21 13:37 98.7 Lab Results Laboratory Tests Test 08/18/21 13:53 White Blood Count 5.7 x10^3/uL (4.0-11.0) Red Blood Count 5.07 x10^6/uL (3.50-5.40) Hemoglobin 15.6 g/dL (12.0-15.5) H Hematocrit 45.7 % (36.0-47.0) Mean Corpuscular Volume 90 fL (79-100) Mean Corpuscular Hemoglobin 31 pg (25-35) Mean Corpuscular Hemoglobin Concent 34 g/dL (31-37) Red Cell Distribution Width 14.5 % (11.5-14.5) Platelet Count 233 x10^3/uL (140-400) Neutrophils (%) (Auto) 76 % (31-73) H Lymphocytes (%) (Auto) 16 % (24-48) L Monocytes (%) (Auto) 8 % (0-9) Eosinophils (%) (Auto) 0 % (0-3) Basophils (%) (Auto) 0 % (0-3) Neutrophils # (Auto) 4.3 x10^3uL (1.8-7.7) Lymphocytes # (Auto) 0.9 x10^3/uL (1.0-4.8) L Monocytes # (Auto) 0.4 x10^3/uL (0.0-1.1) Eosinophils # (Auto) 0.0 x10^3/uL (0.0-0.7) Basophils # (Auto) 0.0 x10^3/uL (0.0-0.2) Sodium Level 144 mmol/L (136-145) Potassium Level 3.7 mmol/L (3.5-5.1) Chloride Level 103 mmol/L (98-107) Carbon Dioxide Level 29 mmol/L (21-32) Anion Gap 12 (6-14) Blood Urea Nitrogen 14 mg/dL (7-20) Creatinine 0.9 mg/dL (0.6-1.0) Estimated GFR (Cockcroft-Gault) 63.9 BUN/Creatinine Ratio 16 (6-20) Glucose Level 98 mg/dL (70-99) Lactic Acid Level 1.0 mmol/L (0.4-2.0) Calcium Level 8.1 mg/dL (8.5-10.1) L Magnesium Level 2.4 mg/dL (1.8-2.4) Total Bilirubin 0.5 mg/dL (0.2-1.0) Aspartate Amino Transferase (AST) 47 U/L (15-37) H Alanine Aminotransferase (ALT) 65 U/L (14-59) H Alkaline Phosphatase 126 U/L (46-116) H Creatine Kinase 37 U/L (26-192) Creatine Kinase MB (Mass) < 0.5 ng/mL (0.0-3.6) Creatine Kinase MB Relative Index % (0-4) Troponin I High Sensitivity 5 ng/L (4-50) Total Protein 6.7 g/dL (6.4-8.2) Albumin 3.2 g/dL (3.4-5.0) L Albumin/Globulin Ratio 0.9 (1.0-1.7) L (JIMMIE BLOOD APRN) EKG EKG [address] Alcocer sinus rhythm heart rate 90 [] (JIMMIE BLOOD APRN) Radiology/Procedures Radiology/Procedures PROCEDURE: PORTABLE CHEST 1V XR CHEST 1V History: Reason: SOA / Spl. Instructions: / History:: Positive. Comparison: August 14, 2021 Findings: Increased moderate diffuse pulmonary ill-defined opacities. No pleural effusion. No pneumothorax. Unchanged heart size. Impression: 1. Increased moderate diffuse pulmonary opacities. Electronically signed by: Piter Mccollum DO (08/18/2021 2:48 PM) [id number] DICTATED AND SIGNED BY: PITER MCCOLLUM DO DATE: 08/18/21 1448 CC: JIMMIE BLOOD APRN; BERNA ARSHAD ~MTH0 0 []PROCEDURE: CT ANGIOGRAPHY CHEST EXAM: CT chest with contrast - pulmonary embolus protocol CLINICAL HISTORY: SOA COVID+ 9 DAYS AGO. COMPARISON: None. TECHNIQUE: CT of the chest following the administration of intravenous contrast during the pulmonary arterial phase. Axial, coronal and sagittal reformatted images were generated including MIP images. ---PQRS compliance statement - One or more of the following individualized dose reduction techniques were utilized for this study: 1. Automated exposure control 2. Adjustment of the mA and/or kV according to patient size 3. Use of iterative reconstruction technique--- FINDINGS: CHEST: Diagnostic quality: Suboptimal. Pulmonary emboli: No pulmonary emboli to the level of the segmental branches. More peripheral vessels are not well assessed. Right heart strain: None Pulmonary arteries: Normal in caliber. Heart is not enlarged. Coronary calcifications are seen. No pericardial effusion. No pleural effusion. Diffuse bilateral patchy and groundglass airspace opacities are seen. No pleural effusion. No pneumothorax. Visualized Upper abdomen: Hepatic hypoattenuation may be seen with fatty liver. Cholecystectomy clips are seen. Bones: No aggressive osseous lesion is seen. IMPRESSION: 1. No evidence for acute pulmonary embolus to the level of the segmental branches. More peripheral vessels are not well assessed. 2. Diffuse bilateral patchy and groundglass airspace opacities consistent with multifocal pneumonia, including viral pneumonia. Imaging follow-up to resolution is recommended. 3. Hepatic hypoattenuation may be seen with fatty liver. Electronically signed by: Dakota Brush MD (08/18/2021 2:46 PM) [facility] DICTATED AND SIGNED BY: DAKOTA BRUSH MD DATE: 08/18/21 8914 CC: JIMMIE BLOOD APRN; BERNA ARSHAD ~MTH0 0 (JIMMIE BLOOD APRN) Heart Score C/O Chest Pain: N/A Risk Factors: Risk Factors: DM, Current or recent (<one month) smoker, HTN, HLP, family history of CAD, obesity. Risk Scores: Risk Factors: DM, Current or recent (<one month) smoker, HTN, HLP, family history of CAD, obesity. (JIMMIE BLOOD APRN) Course & Med Decision Making Course & Med Decision Making Pertinent Labs and Imaging studies reviewed. (See chart for details) This is a 60-year-old female patient presented to the ED today with increased shortness of breath and coughing, symptoms began on August 09, 2021 after being diagnosed with COVID-19. She was seen in the ED on Sunday and started on Levaquin, she states her symptoms are not improving. She arrives in the ED with O2 sats of 88% on room air, she was put on 2 L of oxygen, O2 sats went up to 93%. Heart rate 92, respiration 24 on room air, blood pressure 128/72. Temperature 98.7. CBC with no acute findings, BMP with no acute findings, AST 47, ALT 65, ALK 156. CTA chest negative for PE, multifocal diffuse bilateral patchy and groundglass airspace opacities consistent with multifocal pneumonia, including viral pneumonia. Patient was given antibiotics including Decadron and IV fluids unremarkable to the ED Spoke with Dr. Chin who accepted patient for admission (JIMMIE BLOOD APRN) Dragon Disclaimer Dragon Disclaimer This electronic medical record was generated, in whole or in part, using a voice recognition dictation system. (JIMMIE BLOOD APRN) Attending Co-Sign The patient was seen and interviewed as well as examined at the bedside. The chart was reviewed. The case was discussed. Agree with the plan of care. (AURA ALCOCER DO) Departure Departure: Impression: Primary Impression: Bilateral pulmonary infiltrates on chest x-ray Additional Impressions: Respiratory failure Lab test positive for detection of COVID-19 virus Disposition: ADMITTED INPATIENT Condition: STABLE Referrals: BERNA ARSHAD (PCP) Problem Qualifiers Additional Impressions: Respiratory failure Chronicity: acute Respiratory failure complication: hypoxia Qualified Codes: J96.01 - Acute respiratory failure with hypoxia JIMMIE BLOOD APRN Aug 18, 2021 15:19 AURA ALCOCER DO Aug 18, 2021 17:57
[2021-08-18] MEDS ORDERED: AZITHROMYCIN 500 MG in IV NORMAL SALINE 250ML 250 ML IV ONE (16:00)
[2021-08-18] MEDS ORDERED: DEXAMETHASONE SOD PHOS 10 MG/ML VIAL. IVP ONE (16:00)
[2021-08-18] MEDS ORDERED: ACETAMINOPHEN 325 MG TABLET PO PRN (16:00)
[2021-08-18] MEDS ORDERED: ONDANSETRON PF 4 MG/2 ML VIAL. IVP PRN (16:00)
[2021-08-18 18:32] VITALS: BP 133/85
[2021-08-18 18:32] LABS: INFLUENZA A PATIENT NEGATIVE (NEGATIVE); INFLUENZA B PATIENT NEGATIVE (NEGATIVE)
--- NOTE | 2021-08-18 19:48 | NUR ---
PT ARRIVED TO RM 103 FOR COVID PNA ON PREVIOUS SHIFT. VS OBTAINED. CALL LIGHT IN REACH. WILL CONTINUE TO MONITOR.
[2021-08-18] MEDS: DEXAMETHASONE SOD PHOS 10 MG/ML VIAL. IV SCH (20:11)
[2021-08-18 22:11] VITALS: BP 118/82
[2021-08-18] MEDS ORDERED: TRAZ-120 PO (23:02)
[2021-08-19 05:49] VITALS: BP 131/85
[2021-08-19 06:22] LABS: BASO % 0 % (0-3); EOS % 0 % (0-3); HEMATOCRIT 44.6 % (36.0-47.0); HEMOGLOBIN 14.8 g/dL (12.0-15.5); LYMPH # 0.4 x10^3/uL (1.0-4.8); LYMPH % 14 % (24-48); MEAN CORPUSCULAR HEMOGLOBIN 30 pg (25-35); MEAN CORPUSCULAR HGB CONC 33 g/dL (31-37); MEAN CORPUSCULAR VOLUME 91 fL (79-100); MONO # 0.1 x10^3/uL (0.0-1.1); MONO % 2 % (0-9); NEUT # 2.7 x10^3uL (1.8-7.7); NEUT % 84 % (31-73); PLATELET COUNT 243 x10^3/uL (140-400); RED BLOOD COUNT 4.89 x10^6/uL (3.50-5.40); RED CELL DISTRIBUTION WIDTH 14.5 % (11.5-14.5); WHITE BLOOD COUNT 3.2 x10^3/uL (4.0-11.0)
[2021-08-19 06:40] LABS: ALBUMIN 2.8 g/dL (3.4-5.0); ALBUMIN/GLOBULIN RATIO 0.7 (1.0-1.7); CREATININE 0.8 mg/dL (0.6-1.0); GFR 73.2; POTASSIUM 3.7 mmol/L (3.5-5.1); TOTAL BILIRUBIN 0.5 mg/dL (0.2-1.0); TOTAL PROTEIN 6.9 g/dL (6.4-8.2)
[2021-08-19] MEDS: DEXAMETHASONE SOD PHOS 10 MG/ML VIAL. IV SCH (08:24)
--- NOTE | 2021-08-19 09:21 | HP ---
DATE OF SERVICE: 08/19/2021 ADMIT DATE: 08/18/2021 ATTENDING PHYSICIAN: Dr. Chin. CHIEF COMPLAINT: Shortness of breath. HISTORY OF PRESENT ILLNESS: The patient is a 60-year-old female, who has had increasing cough and congestion since 08/09. She was diagnosed with COVID. She has not been vaccinated. She was exposed to a family member during . Her workup in the ED showed significant hypoxemia, requiring 5 liters of oxygen to maintain oxygen saturation above 90%. CT of the chest showed diffuse patchy ground glass infiltrates in both bases. She was admitted then with symptomatic COVID pneumonia and acute respiratory failure with hypoxemia. PAST MEDICAL HISTORY: Significant for several surgeries. She has a partial nephrectomy 17 years ago. The top one-third of the kidney removed for renal cell carcinoma. She has been in remission at that time. She also has a previous hysterectomy and a laparoscopic cholecystectomy, the hysterectomy was for fibroids. She has some hypertension and hyperlipidemia. CURRENT MEDICATIONS: Reviewed. ALLERGIES: SHE HAS ALLERGIES TO CODEINE AND SULFA DRUGS. MEDICATIONS: She is on aspirin, Lipitor, Levaquin, meloxicam, metoprolol, Fetzima, metoprolol, multivitamin, and trazodone. SOCIAL HISTORY: She is a nonsmoker, nondrinker. FAMILY HISTORY: Unobtainable. The patient was adopted. She is not aware of the biologic history of her parents. REVIEW OF SYSTEMS: Significant for the cough, nonproductive. No fevers. No loss of taste. She tested positive for COVID on 07/29. She has not been vaccinated. All other systems reviewed and turned to be negative. PHYSICAL EXAMINATION: GENERAL: When I saw her, this is a pleasant, middle-aged female. VITAL SIGNS: Initial vital signs showed a blood pressure 131/85, pulse is 92 and regular. She was afebrile, oxygen saturation 93% on 5 liters by nasal cannula. HEENT: Head is without trauma. Pupils are reactive. Sclerae nonicteric. The oropharynx is clear. NECK: Supple. No bruits identified. LUNGS: Coarse rhonchi in the bases. CARDIOVASCULAR: Regular heart tones. No gallop. ABDOMEN: Soft, obese, protuberant. No organomegaly. EXTREMITIES: Show no cyanosis or edema. NEUROLOGIC: Focally intact. SKIN: Warm and dry. PERTINENT LABORATORY STUDIES: Hemoglobin is 15.6 g/dL with a white count of 5700. Electrolytes were within normal range. Creatinine 0.9 mg/dL. Nonfasting blood sugar 98. ASSESSMENT: 1. A 60-year-old female with bilateral COVID pneumonia. 2. Unvaccinated patient. 3. Acute hypoxemic respiratory failure. 4. History of renal cell cancer, in remission. 5. Obesity. 6. Essential hypertension. PLAN: 1. Admit to the inpatient unit. 2. Supplemental oxygen. 3. Empiric Decadron. 4. Diet as tolerated. 5. Empiric Lovenox. CHELLY/DEIRDRE DR: Kamryn TID: [id number] CC: LURDES CAO
[2021-08-19] MEDS: ENOXAPARIN 30 MG/0.3 ML SYRINGE. SQ SCH (09:40)
[2021-08-19] MEDS: oxyCODONE/APAP 7.5/325 1 TAB TABLET PO PRN ×2 (10:23→16:30)
[2021-08-19 10:48] VITALS: BP 122/83
[2021-08-19] MEDS ORDERED: DEXAMETHASONE SOD PHOS 4 MG/ML VIAL. IVP ONE (14:00)
[2021-08-19 14:06] VITALS: BP 116/77
[2021-08-19] MEDS: traZODone 50 MG TABLET. PO PRN (21:21)
[2021-08-19 21:59] VITALS: BP 139/85
--- NOTE | 2021-08-19 23:52 | NUR ---
Nursing note: Pt requested trazadone; called MD who ordered her home med continued. Decreased O2 to 8L HFNC with humidifier at beginning of shift as O2 sats >90; on reassessment, increased O2 back to 10L.
[2021-08-20 00:17] VITALS: BP 116/75
[2021-08-20 05:05] VITALS: BP 108/71
[2021-08-20] MEDS: oxyCODONE/APAP 7.5/325 1 TAB TABLET PO PRN (05:24)
--- NOTE | 2021-08-20 08:43 | PN ---
DATE: 08/20/2021 ATTENDING PHYSICIAN: Dr. Chin. SUBJECTIVE: Moderate headache, otherwise no other distress. OBJECTIVE FINDINGS: VITAL SIGNS: Blood pressure and vital signs are within normal range. She is afebrile. Oxygen saturation maintained close to 90%. Currently, she is on 8 liters by Venturi mask. HEENT: Head is without trauma. Pupils are reactive. Sclerae nonicteric. Oropharynx is clear. NECK: Supple, no bruits. LUNGS: Minimal rhonchi at bases. No wheezing. CARDIOVASCULAR: Regular heart tones. ABDOMEN: Soft. EXTREMITIES: Without edema. NEUROLOGIC: Function focally intact. ASSESSMENT: 1. A 60-year-old female with bilateral COVID pneumonia. 2. Acute hypoxemic respiratory failure, requiring supplemental oxygen. 3. History of renal cell cancer, in remission with previous nephrectomy. 4. Hypertension. 5. Obesity. PLAN: 1. Continue supportive care. Supplemental oxygen to be weaned down. 2. Empiric Decadron ordered. 3. Diet as tolerated. 4. Percocet dose has been increased to 10 mg every 6 hours p.r.n. headache. CHELLY/TALISHA DR: CHELLY/robert TID: [id number]
[2021-08-20] MEDS: NON FORMULARY ITEM PO SCH (08:49)
[2021-08-20] MEDS: DEXAMETHASONE SOD PHOS 10 MG/ML VIAL. IV SCH (08:51)
[2021-08-20] MEDS: ENOXAPARIN 30 MG/0.3 ML SYRINGE. SQ SCH (08:52)
[2021-08-20] MEDS: oxyCODONE/APAP 10/325 1 TAB TABLET PO PRN ×2 (09:07→17:54)
[2021-08-20 11:04] VITALS: BP 125/77
[2021-08-20 16:02] VITALS: BP 134/81
[2021-08-20 19:00] VITALS: BP 142/87
[2021-08-20] MEDS: traZODone 50 MG TABLET. PO PRN (20:47)
[2021-08-20 23:00] VITALS: BP 95/68
[2021-08-21 05:00] VITALS: BP 133/84
[2021-08-21] MEDS: ENOXAPARIN 30 MG/0.3 ML SYRINGE. SQ SCH (08:25)
[2021-08-21] MEDS: DEXAMETHASONE SOD PHOS 10 MG/ML VIAL. IV SCH (08:26)
[2021-08-21] MEDS: oxyCODONE/APAP 10/325 1 TAB TABLET PO PRN (08:27)
[2021-08-21] MEDS ORDERED: BUDESONIDE 0.5 MG/2 ML NEBU NEB ONE (08:30)
[2021-08-21] MEDS: NON FORMULARY ITEM PO SCH (08:34)
--- NOTE | 2021-08-21 09:04 | PN ---
DATE: 08/21/2021 SUBJECTIVE: She is comfortable. She is breathing better. Her oxygen requirement has come down from 10 liters down to 6 liters. We are in the process of weaning. She has some minimal chest pressure, but otherwise no discomfort. OBJECTIVE FINDINGS: VITAL SIGNS: Blood pressure this morning is 133/84. Her oxygen saturation 91% on 6 liters by nasal cannula. She is afebrile, pulse is 71 and regular. HEENT: Head is without trauma. Pupils are reactive. Sclerae nonicteric. Oropharynx clear. NECK: Supple, no bruits. LUNGS: Good breath sounds. CARDIOVASCULAR: Regular heart tones. No gallop. ABDOMEN: Soft. Peripheral pulses were full. EXTREMITIES: Showed no edema. ASSESSMENT: 1. A 60-year-old female with bilateral COVID pneumonia. 2. Acute hypoxemic respiratory failure requiring supplemental oxygen. 3. History of renal cell cancer with partial right nephrectomy. 4. Essential hypertension. 5. Obesity. PLAN: 1. Continue supportive care. 2. We are weaning oxygen down. 3. Empiric Decadron, antibiotics. 4. Once we reach a steady level of saturations at 2 liters, we can discharge her home with supplemental oxygen. RICK DR: Kamryn TID: [id number] CC: LURDES CAO
[2021-08-21 11:48] VITALS: BP 155/90
[2021-08-21] MEDS ORDERED: BUDESONIDE 0.5 MG/2 ML NEBU NEB PRN (12:00)
[2021-08-21] MEDS ORDERED: ACETAMINOPHEN 325 MG TABLET PO ONE (13:00)
[2021-08-21 16:09] VITALS: BP 136/83
[2021-08-21 20:04] VITALS: BP 131/81
[2021-08-21] MEDS: traZODone 50 MG TABLET. PO PRN (20:33)
--- NOTE | 2021-08-21 22:00 | NUR ---
PT on 6L NC with humidifier in place. PT showed no signs of distress on assessment.
[2021-08-21 23:37] VITALS: BP 105/66
[2021-08-22 05:46] VITALS: BP 144/83
[2021-08-22] MEDS: NON FORMULARY ITEM PO SCH (08:04)
[2021-08-22] MEDS: DEXAMETHASONE SOD PHOS 10 MG/ML VIAL. IV SCH (08:04)
[2021-08-22] MEDS: ENOXAPARIN 30 MG/0.3 ML SYRINGE. SQ SCH (08:04)
[2021-08-22] MEDS: oxyCODONE/APAP 10/325 1 TAB TABLET PO PRN ×2 (08:05→20:23)
--- NOTE | 2021-08-22 08:44 | PN ---
DATE: 08/22/2021 ATTENDING PHYSICIAN: Dr. Chin. SUBJECTIVE: She is doing better. She is comfortable at rest. She still has exertional dyspnea. OBJECTIVE FINDINGS: VITAL SIGNS: Blood pressure this morning is 144/83 mmHg. She is afebrile. Her oxygen saturations are 94% on 4 liters by nasal cannula. HEENT: Head is without trauma. Pupils are reactive. Sclerae nonicteric. The oropharynx is clear. NECK: Supple, no bruits. LUNGS: Good breath sounds with minimal rhonchi at bases. CARDIOVASCULAR: Regular heart tones. ABDOMEN: Soft. EXTREMITIES: Without edema. NEUROLOGIC: Focally intact. ASSESSMENT: 1. A 60-year-old female with bilateral COVID pneumonia. 2. Acute hypoxemic respiratory failure, improving with decreased oxygen demands. 3. History of renal cell cancer with partial right nephrectomy. 4. Essential hypertension, currently normotensive. 5. Obesity. PLAN: 1. We are in the process of weaning down her oxygen supplement. 2. Tentative plans for discharge home tomorrow with supplemental oxygen and oral meds. CHELLY/JAD DR: Kamryn TID: [id number]
[2021-08-22 10:15] VITALS: BP 131/85
--- NOTE | 2021-08-22 10:57 | NUR ---
CHECKLIST FOR DISCONTINUATION OF COVID ISOLATION PERFORMED. PATIENT WAS TESTED POSITIVE FOR COVID ON 08.09.2021. PER PROTOCOL PATIENT MUST STAY ON ISOLATION FOR [address] NICOLE NOTIFIED. ISOLATION FOR COVID DISCONTINUED.
[2021-08-22 15:23] VITALS: BP 119/80
[2021-08-22 19:00] VITALS: BP 144/83
[2021-08-22] MEDS: LACTOBACILLUS RHAMNOSUS GG 1 CAPSULE. PO SCH (20:23)
[2021-08-22] MEDS: traZODone 50 MG TABLET. PO PRN (21:40)
[2021-08-22 23:00] VITALS: BP 108/68
[2021-08-23 05:00] VITALS: BP 133/84
[2021-08-23] MEDS: ENOXAPARIN 30 MG/0.3 ML SYRINGE. SQ SCH (08:25)
[2021-08-23] MEDS: LACTOBACILLUS RHAMNOSUS GG 1 CAPSULE. PO SCH (08:26)
[2021-08-23] MEDS: NON FORMULARY ITEM PO SCH (08:26)
[2021-08-23] MEDS: DEXAMETHASONE SOD PHOS 10 MG/ML VIAL. IV SCH (08:26)
[2021-08-23] MEDS: oxyCODONE/APAP 10/325 1 TAB TABLET PO PRN (08:37)
--- NOTE | 2021-08-23 12:22 | NUR ---
PATIENT IS DISCHARGED HOME, DISCHARGED INSTRUCTION REVIEWED, PATIENT VERBALIZED UNDERSTANDING. HOME MEDS GIVEN BACK TO THE PATIENT FROM THE PHARMACY. PATIENT RECEIVED EDUCATION ON OXYGEN USE AT HOME. PATIENT LEFT ROOM 103 VIA W/C ACCOMP BY STAFF MEMBER. PATIENT IS TAKEN HOME BY FAMILY VIA PERSONAL VEHICLE.
--- NOTE | 2021-08-23 18:53 | DS ---
DATE OF DISCHARGE: 08/23/2021 ATTENDING PHYSICIAN: Dr. Chin. FINAL DISCHARGE DIAGNOSES: 1. Bilateral COVID pneumonia. 2. Acute respiratory failure requiring supplemental oxygen. 3. History of renal cell cancer with previous partial right nephrectomy. 4. Essential hypertension. 5. Obesity. HISTORY AND PHYSICAL: The patient is a 60-year-old female unvaccinated patient with increasing shortness of breath, congestion and chest x-ray evidence of bilateral pneumonia. She was tested positive for COVID-19. PHYSICAL EXAMINATION: Please see the dictated note. PERTINENT LABORATORY AND X-RAY STUDIES: Admission hemoglobin 15.6 gm/dL, white count 5700. Electrolytes within normal range. Creatinine is 0.9 mg/dL. Transaminases are normal. Cardiac enzymes negative for coronary ischemia. Blood cultures were negative after 96 hours. IMAGING STUDIES: CT of the chest showed evidence of bibasilar ground glass appearing infiltrates, opacities, no blood clots identified. COURSE IN THE HOSPITAL: The patient was admitted. She was started on empiric Levaquin, Decadron, nebulizer therapy and supplemental oxygen. Oxygen requirements were weaned down to 2-3 liters to maintain saturations greater than 90%. On the fifth hospital day, I wrote scripts for Levaquin 500 mg p.o. daily for 5 more days and stop and Decadron 8 mg p.o. daily. Other home meds are unchanged and they include the following: She was getting some p.r.n. Percocet. She will have to get refills through Maya Bahena's office. Other home meds include continuation of her aspirin, Lipitor, meloxicam p.r.n., metoprolol, multivitamin, trazodone doses unchanged. She will follow up with [facility] Bahena as scheduled. She was discharged from our hospital in stable condition with explicit drug and followup care. CHELLY/EVELIA DR: Kamryn TID: [id number] CC: LURDES CAO
== END 2021-08-23 12:25 | disposition home or self-care (01) | DRG 177 ==
LOC: ER 13:35 → 1 SOUTH 16:12
PROVIDERS: ADMIT Hospitalist; ATTEND Hospitalist
DX: U07.1 COVID-19 (principal); J12.82 Pneumonia due to coronavirus disease 2019; J96.01 Acute respiratory failure with hypoxia; E66.9 Obesity, unspecified; E78.5 Hyperlipidemia, unspecified; I10 Essential (primary) hypertension; Z85.528 Personal history of other malignant neoplasm of kidney; Z90.5 Acquired absence of kidney; Z90.710 Acquired absence of both cervix and uterus; I25.2 Old myocardial infarction; Z88.5 Allergy status to narcotic agent; Z88.2 Allergy status to sulfonamides; Z68.36 Body mass index [BMI] 36.0-36.9, adult
CPT/HCPCS: 36415; 71045; 71275; 80053; 82553; 83605; 83735; 84484; 85025; 87040; 87804; 93005; 94640; 96365; 96375; J0456; J0696; J1100; J1650; J2543; J3010; J3370; J7040; J7050; Q9967; 99285-25; J7030

== ENCOUNTER → 2021-10-07 | Outpatient (CLI) | payer BC ==
[~2021-10-07] MED LIST changes: +TRAZ-120 PO
--- NOTE | 2021-10-07 13:33 | RAD ---
EXAM: Chest, 2 views. HISTORY: Cough. COMPARISON: 08/18/2021 FINDINGS: 2 views of the chest are obtained. There has been slight interval decrease in diffuse inter stitial infiltrate. There is no consolidation, pleural effusion or pneumothorax. The heart is normal in size. IMPRESSION: Slight interval decrease in diffuse interstitial infiltrate. Electronically signed by: Erin Laughlin MD (10/07/2021 1:31 PM) [id number]
== END ==
LOC: RAD 12:15
PROVIDERS: ATTEND Physician Assistant Medical
DX: J84.9 Interstitial pulmonary disease, unspecified (principal)
CPT/HCPCS: 71046

== ENCOUNTER → 2021-12-04 | Outpatient (CLI) | payer BC ==
--- NOTE | 2021-12-04 14:10 | RAD ---
INDICATION: Reason: COUGH, SOB / Spl. Instructions: / History: COMPARISON: March 07, 2022 FINDINGS: 2 view of chest obtained. Redemonstration of interstitial opacities bilaterally with some coarsened lung markings. Cardiomediastinal silhouette is unremarkable. Degenerative changes of the spine. IMPRESSION: * Multifocal interstitial and groundglass opacities are again seen throughout the bilateral lungs an d could be secondary to persistent interstitial and groundglass infiltrate bilaterally. This appears grossly similar to September 2021 but increased from the patient's baseline. A component of mild edema is also not excluded given the interstitial component. Electronically signed by: Florentin Tabares MD (12/04/2021 2:07 PM) [id number]
== END ==
LOC: RAD 12:10
PROVIDERS: ATTEND Physician Assistant
DX: R05.9 Cough, unspecified (principal); R06.02 Shortness of breath; M47.814 Spondylosis without myelopathy or radiculopathy, thoracic region
CPT/HCPCS: 71046

== ENCOUNTER → 2022-01-03 | Outpatient (CLI) | payer BC ==
--- NOTE | 2022-01-03 17:09 | CARD ---
MR#: [id number] Date of Study: 01/03/2022 Ordering Physician: DIA FONSECA, Referring Physician: DIA FONSECA, Tech: Pedrito Moulton [facility] APPROVED REPORT EXAM: Two-dimensional and M-mode echocardiogram with Doppler and color Doppler. Other Information Quality : FairHR: 89bpm Rhythm : NSR INDICATION Cardiac Disease: CAD 2D DIMENSIONS Left Atrium(2D)3.3 (1.6-4.0cm)IVSd1.2 (0.7-1.1cm) Aortic Root(2D)3.3 (2.0-3.7cm)LVDd4.2 (3.9-5.9cm) LVOT Diameter2.0 (1.8-2.4cm)PWd1.2 (0.7-1.1cm) LA Cwlgee14 (18-58mL)LVDs1.9 (2.5-4.0cm) FS (%) 55.2 %SV68.1 ml LVEF(%)86.2 (>50%) Aortic Valve AoV Peak Jairo.121.0cm/sAoV VTI23.2cm AO Peak GR.5.9mmHgLVOT Peak Jairo.108.8cm/s LVOT VTI 22.31cmAO Mean GR.3mmHg SUMMER (VMAX)2.38ro5TEI (VTI)2.92cm2 Mitral Valve MV E Ykgaranq51.0cm/sMV E Peak Gr.5mmHg MV DECEL KPOF279lyPG A Tahlbcqk965.9cm/s MV E Mean Gr.2mmHgE/A Ratio0.7 Pulmonary Valve PV Peak Abzxwkrr230.9cm/sPV Peak Grad.5mmHg Tricuspid Valve TR P. Epqievfs531pe/sTR Peak Gr.27mmHg Pulmonary Vein S1 Aitaiiij78.2cm/sD2 Jkvnwhss26.0cm/s LEFT VENTRICLE The left ventricle is normal size. There is mild concentric left ventricular hypertrophy. The left ve ntricular systolic function is normal. The ejection fraction is 65-70%. There is normal LV segmental wall motion. Transmitral Doppler flow pattern is Grade I-abnormal relaxation pattern. No left ventric le thrombus noted on this study. There is no ventricular septal defect visualized. There is no left v entricular aneurysm. There is no mass noted in the left ventricle. RIGHT VENTRICLE The right ventricle is normal size. There is normal right ventricular wall thickness. The right ventr icular systolic function is normal. ATRIA The left atrium size is normal. The right atrium size is normal. The interatrial septum is intact wit h no evidence for an atrial septal defect or patent foramen ovale as noted on 2-D or Doppler imaging. AORTIC VALVE The aortic valve is normal in structure and function. The aortic valve is trileaflet. Doppler and Col or Flow revealed no significant aortic regurgitation. There is no significant aortic valvular stenosi s. There is no aortic valvular vegetation. MITRAL VALVE The mitral valve is normal in structure and function. There is no evidence of mitral valve prolapse. There is no mitral valve stenosis. Doppler and Color Flow revealed no mitral valve regurgitation note d. TRICUSPID VALVE The tricuspid valve is normal in structure and function. Doppler and Color Flow revealed trace tricus pid regurgitation. The PA pressure was estimated at 32 mmHg. There is no tricuspid valve prolapse or vegetation. There is no tricuspid valve stenosis. PULMONIC VALVE The pulmonary valve is normal in structure and function. Doppler and Color Flow revealed no pulmonic valvular regurgitation. There is no pulmonic valvular stenosis. GREAT VESSELS The aortic root is normal in size. The ascending aorta is normal in size. The pulmonary artery is nor mal. The IVC is normal in size and collapses >50% with inspiration. PERICARDIAL EFFUSION There is no pleural effusion. There is no evidence of significant pericardial effusion. Critical Notification Critical Value: No <Conclusion> The left ventricular systolic function is normal. The ejection fraction is 65-70%. There is normal LV segmental wall motion. Transmitral Doppler flow pattern is Grade I-abnormal relaxation pattern. Trace tricuspid regurgitation. The PA pressure was estimated at 32 mmHg. There is no evidence of significant pericardial effusion. Signed by : Suresh Powers, Electronically Approved : 01/03/2022 17:08:37
== END ==
LOC: ECHO 15:13
PROVIDERS: ATTEND Internal Medicine Cardiovascular Disease
DX: I25.10 Atherosclerotic heart disease of native coronary artery without angina pectoris (principal)
CPT/HCPCS: 93306